=== PATIENT | female | born 1940 | race African-American/Black ===

== ENCOUNTER 2016-09-30 14:40 | Emergency (ER) | payer OTHER ==
[2016-09-30 15:10] VITALS: TEMP 98; BMI 22.6
[2016-09-30] MEDS ORDERED: SODIUM CHLORIDE 500 ML IV STA (15:39)
[2016-09-30] MEDS ORDERED: ONDANSETRON 4 MG/2 ML VIAL IVPB ONE (15:39)
--- NOTE | 2016-09-30 15:41 | PDOC ---
History of Present Illness - General History Source: Patient Exam Limitations: No Limitations - History of Present Illness Initial Comments: 09/30/16 16:12 The patient is a 76 year old female, with a significant past medical history of HTN, cataract, and diet controlled hypercholesterolemia, who presents to the emergency department with diarrhea and weakness for about an hour an ago. She notes having more than 6 episodes of diarrhea since its original onset. She reports the diarrhea as watery with normal brown stool. She denies any black or red stool. pt does endorse LLQ pain briefly prior to her BM but then resolved. She denies recent fevers, chills, headache or dizziness. She denies recent nausea, vomit, or constipation. She denies recent dysuria, frequency, urgency or hematuria. She denies recent chest pain or shortness of breath. pt notes she does have a history of diverticulitis an d is concerned that may be a recurrence. Allergies: Penicillins Past surgical history: None reported. Social history: Nonsmoker. Denies EtOH use and recreational drug use. PCP: <Faheem Huitron - Last Filed: 09/30/16 16:12> <Steven Anaya - Last Filed: 09/30/16 18:22> - General Chief Complaint: Diarrhea Stated Complaint: Diarrhea Time Seen by Provider: 09/30/16 15:02 Past History <Faheem Huitron - Last Filed: 09/30/16 16:12> - Past Medical History Diabetes: Yes (TYPE 2) GI Disorders: Yes (GERD) HTN: Yes Hypercholesterolemia: Yes - Surgical History Neurologic Surgery: Yes (LT SHOULDER) - Psycho/Social/Smoking Cessation Hx Suicidal Ideation: No Smoking History: Never smoked Have you smoked in the past 12 months: No Hx Alcohol Use: No Drug/Substance Use Hx: No Substance Use Type: None Hx Substance Use Treatment: No <Steven Anaya - Last Filed: 09/30/16 18:22> - Past Medical History Allergies/Adverse Reactions: Allergies Allergy/AdvReac Type Severity Reaction Status Date / Time Penicillins Allergy Verified 02/21/16 13:28 Home Medications: Ambulatory Orders Nifedipine ER [Procardia XL -] 50 mg PO DAILY 11/21/13 Lisinopril [Zestril] 5 mg PO DAILY 02/21/16 Review of Systems - Review of Systems Able to Perform ROS?: Yes Comments:: 09/30/16 16:12 CONSTITUTIONAL: No reported: Fever, Chills, Diaphoresis, Generalized Weakness, Malaise, Loss of Appetite HEENT: No reported: Rhinorrhea, Nasal Congestion, Throat Pain, Throat Swelling, Difficulty Swallowing, Mouth Swelling, Ear Pain, Eye Pain, Visual Changes CARDIOVASCULAR: No reported: Chest Pain, Syncope, Palpitations, Irregular Heart Rate, Lightheadedness, Peripheral Edema RESPIRATORY: No reported: Cough, Shortness of Breath, SOB with Exertion, Orthopnea, Wheezing , Stridor, Hemoptysis GASTROINTESTINAL: +Diarrhea. abd pain (non currently)No reported: Nausea, Vomiting, Constipation, Melena, Hematochezia GENITOURINARY: No reported: Dysuria, Frequency, Urgency, Hesitancy, Flank Pain, Genital Pain MUSCULOSKELETAL: No reported: Myalgia, Arthralgia, Joint Swelling, Back pain, Neck Pain SKIN: No reported: Rash, Itching, Pallor HEMATOLOGIC/IMMUNOLOGIC: No reported: Easy Bleeding, Easy Bruising, Lymphadenopathy, Frequent infections ENDOCRINE: No reported: Unexplained Weight Gain, Unexplained Weight Loss, Heat Intolerance , Cold Intolerance NEUROLOGIC: No reported: Headache, Focal Weakness, Paresthesias, Vertigo, Lightheadedness, Unsteady Gait, Seizure, Mental Status Changes, Incontinence PSYCHIATRIC: No reported: Anxiety, Depression <Faheem Huitron - Last Filed: 09/30/16 16:12> *Physical Exam - Vital Signs Last Vital Signs Temp Pulse Resp BP Pulse Ox 98 F 56 L 18 117/54 100 09/30/16 15:03 09/30/16 15:03 09/30/16 15:03 09/30/16 15:03 09/30/16 15:03 - Physical Exam Comments: 09/30/16 16:12 GENERAL: The patient is awake, alert, and fully oriented, Nontoxic - in no acute distress. HEAD: Normocephalic, atraumatic. EYES: extraocular movements intact, sclera anicteric, conjunctiva clear. ENT: Normal voice, Moist mucous membranes. NECK: Normal range of motion, supple LUNGS: Breath sounds equal, clear to auscultation bilaterally. No wheezes, no rhonchi, no rales. HEART: Regular rate and rhythm, without murmur, rub or gallop. ABDOMEN: Soft, nontender, normoactive bowel sounds. No guarding, no rebound.No CVA tenderness EXTREMITIES: Normal range of motion, no edema. No clubbing or cyanosis. No cords , erythema, or tenderness. NEUROLOGICAL: No facial asymmetry, Normal speech. PSYCH: Normal mood, normal affect. SKIN: Warm, Dry, normal turgor. <Faheem Huitron - Last Filed: 09/30/16 16:12> - Vital Signs Last Vital Signs Temp Pulse Resp BP Pulse Ox 98 F 56 L 18 117/54 100 09/30/16 15:03 09/30/16 15:03 09/30/16 15:03 09/30/16 15:03 09/30/16 15:03 <Steven Anaya - Last Filed: 09/30/16 18:22> ED Treatment Course - LABORATORY CBC & Chemistry Diagram: 09/30/16 15:40 09/30/16 15:40 - Medications Given in the ED: ED Medications Discontinued Medications Generic Name Dose Route Start Last Admin Trade Name Loyda PRN Reason Stop Dose Admin Ondansetron HCl 4 mg 09/30/16 15:39 09/30/16 15:53 Zofran Injection IVPB 09/30/16 15:40 4 mg ONCE ONE Administration <Faheem Huitron - Last Filed: 09/30/16 16:12> - LABORATORY CBC & Chemistry Diagram: 09/30/16 15:40 09/30/16 15:40 <Steven Anaya - Last Filed: 09/30/16 18:22> Medical Decision Making - Medical Decision Making 09/30/16 15:40 76y F hx of htn presents with abd pain and multiple episodes of diarrhea since this morning, pt had a brief episode of pain prior to her pain denies currnt pain. no associated fever/chills, n/v, her exam is unremarkble and she is otehrwise well appearing. suspect possible enteritis consider possible diverticulitis will ck basic labs will reassess, at this piont, do not feel pt needs imaging, but will reassess A portion of this note was documented by scribe services under my direction. I have reviewed the details of the note, within reason, and agree with the documentation with the following case summary and management plan written by me 09/30/16 18:12 The patient is feeling improved, the patient's blood work was reviewed there is no signs of a leukocytosis she is mildly anemic Will have the patient follow-up with a primary care doctor Return precautions were discussed I discussed the physical exam findings, ancillary test results and final diagnoses with the patient. I answered all of the patient's questions. The patient was satisfied with the care received and felt comfortable with the discharge plan and treatment plan. The patient will call their primary care physician within 24 hours to arrange follow-up and will return to the Emergency Department with any new, persistent or worsening symptoms. <Steven Anaya - Last Filed: 09/30/16 18:22> *DC/Admit/Observation/Transfer - Attestations Scribe Attestion: 09/30/16 16:13 Documentation prepared by Faheem Huitron, acting as medical oncologist for Steven Anaya MD. <Faheem Huitron - Last Filed: 09/30/16 16:12> - Discharge Dispostion Admit: No <Steven Anaya - Last Filed: 09/30/16 18:22> Diagnosis at time of Disposition: Diarrhea Qualifiers: Diarrhea type: unspecified type Qualified Code(s): R19.7 - Diarrhea, unspecified - Discharge Dispostion Disposition: HOME Condition at time of disposition: Improved - Referrals Referrals: Desiree Gleason MD [Primary Care Provider] - - Patient Instructions Printed Discharge Instructions: DI for Diarrhea and Traveler's Diarrhea -- Adult Additional Instructions: Return to the emergency department immediately with ANY new, persistent or worsening symptoms including worsening abdominal pain, fevers, inability to tolerate oral intake, chest pain, shortness of breath or any other concerns. Stay well hydrated. You MUST call and follow up with your doctor tomorrow. Your emergency department visit is not complete without a followup with your doctor for reevaluation. Please make sure your doctor reviews the results of your emergency evaluation. Print Language: UZBEK
[2016-09-30] MEDS ORDERED: ONDANSETRON 4 MG/2 ML VIAL ONE (15:49)
[2016-09-30 16:18] LABS: BASOPHIL 1.1 % (0-2.0); EOSINOPHIL 0.4 % (0-4.5); MCHC 29.8 g/dl (32.0-36.0); MEAN CELL VOLUME 65.3 fl (80-96); MEAN PLT VOLUME 8.9 fl (7.5-11.1); NEUTROPHILS 65.5 % (42.8-82.8); PLATELET COUNT 483 K/MM3 (134-434); RDW 27.8 % (11.6-15.6); WHITE BLOOD COUNT 8.5 K/mm3 (4.0-10.0)
[2016-09-30 16:24] LABS: MCH 19.5 pg (25.7-33.7)
[2016-09-30 16:46] LABS: ALBUMIN 3.6 g/dl (3.4-5.0); ALK PHOS 141 U/L (45-117); ANION GAP 9 (8-16); BILIRUBIN,TOTAL 0.3 mg/dL (0.2-1.0); CALCIUM 9.4 mg/dL (8.5-10.1); CO2 26 mmol/L (21-32); CREATININE 0.6 mg/dL (0.55-1.02); GLUCOSE,RANDOM 96 mg/dL (74-106); SGOT/AST 15 U/L (15-37); SGPT/ALT 22 U/L (12-78); TOT PROT 7.2 g/dl (6.4-8.2)
[2016-09-30 18:18] LABS: URINE APPEARANCE CLEAR; URINE BILIRUBIN NEGATIVE (NEGATIVE); URINE BLOOD NEGATIVE (NEGATIVE); URINE COLOR YELLOW; URINE GLUCOSE (UA) NEGATIVE (NEGATIVE); URINE KETONE NEGATIVE (NEGATIVE); URINE LEUK ESTERASE NEGATIVE (NEGATIVE); URINE NITRITE NEGATIVE (NEGATIVE); URINE PROTEIN NEGATIVE (NEGATIVE); URINE UROBILINOGEN NEGATIVE E.U./dl (0.2-1.0)
[2016-09-30 19:09] VITALS: BP 136/71; PULSE 74
[2016-09-30 19:48] LABS: ANISOCYTOSIS 3+; HYPOCHROMIA 2+; MICROCYTOSIS 1+; PLATELET ESTIMATE ADEQUATE (NORMAL); POLYCHROMASIA 1+
== END 2016-09-30 19:09 | disposition home or self-care (01) ==
LOC: JER 14:40
PROC: 3E033GC Introduction of Other Therapeutic Substance into Peripheral Vein, Percutaneous Approach (ICD-10-PCS; principal; 2016-09-30)
DX: R19.7 Diarrhea, unspecified (principal); I10 Essential (primary) hypertension; E11.9 Type 2 diabetes mellitus without complications; E78.00 Pure hypercholesterolemia, unspecified; K21.9 Gastro-esophageal reflux disease without esophagitis
CPT/HCPCS: 36415; 80053; 81003; 85025; 99282-25

== ENCOUNTER 2017-04-14 11:56 | Inpatient (IN) | payer OTHER ==
[2017-04-14] MEDS ORDERED: SODIUM CHLORIDE 1,000 ML IV STA (12:23)
[2017-04-14] MEDS ORDERED: FAMOTIDINE 20 MG/50 ML IVPB 20 MG/50 ML MG IVPB ONE (12:23)
--- NOTE | 2017-04-14 12:36 | PDOC ---
Attending Attestation - HPI HPI: 04/14/17 13:13 The patient is 76 year old female, with a significant past medical history of hypertension, DM, diverticulitis and hemorrhoids, who presents to the emergency room complaining of multiple episodes of diarrhea with bright red blood in stool. The patient reports associated weakness, chills and epigastric abdominal pain. She denies chest pain or shortness of breath. She denies recent fevers, chills, nausea or vomiting. Documentation prepared by Padilla Roberson, acting as medical technologist hematology for Jamar Diaz MD. <Padilla Roberson - Last Filed: 04/14/17 13:13> - Resident Resident Name: David Giron - ED Attending Attestation I have performed the following: I have examined & evaluated the patient, The case was reviewed & discussed with the resident, I agree w/resident's findings & plan, Exceptions are as noted - Physicial Exam PE: 04/14/17 13:37 Patient is awake and alert, afebrile and normotensive; patient had a near syncopal episode in the bathroom during the initial evaluation without LOC or head injury. Normocephalic, atraumatic; perrla, emo, conjunctiva are pale mmm rrr cta + Left-sided abdominal tenderness to palpation; No edema - Medical Decision Making 04/14/17 13:38 Patient is a 76-year-old female who presents to the ER with episodes of bright red blood per rectum after several bouts of loose watery stools. In the ER, patient is awake and alert, afebrile, hemodynamically stable. Patient was noted to have a near syncopal episode in the bathroom while defecating. EKG post near- syncope reveals no evidence of underlying ischemia or arrhythmia. Differential diagnoses includes ischemic colitis versus infectious colitis versus diverticulitis versus AVM or related rectal bleeding versus hemorrhoid related rectal bleeding. Will obtain CBC/CMP/PT/type and screen. Will obtain CT that and pelvis with by mouth and IV contrast. We'll transfuse as needed. Likely admission. 04/14/17 15:31 Patient remains hemodynamically stable. However, she has had several episodes of rectal bleeding. Will obtain CT of abdomen and pelvis with by mouth and IV contrast; Will obtain repeat CBC at 4 hours and if the hemoglobin continues to drop, will transfuse. <Jamar Diaz - Last Filed: 04/14/17 15:32>
--- NOTE | 2017-04-14 12:39 | PDOC ---
History of Present Illness - General History Source: Patient Exam Limitations: No Limitations - History of Present Illness Initial Comments: 04/14/17 12:27 Patient is a 76F with history of HTN, DM2, diverticulitis and hemorrhoids here today complaining of diarrhea and bright red blood in stool. She reports having several episodes of diarrhea this morning then passing some bright red blood painlessly during her last bowel movement. She reports associated generalized weakness with chills. She is complaining of associated epigastric abdominal pain. Denies chest pain, shortness of breath, and cough. Denies taking blood thinners. Denies nausea, vomiting, fevers and pain with urination. After examination, patient stopped responding while sitting on the toilet to her son, who called for help. She was found upright on the toilet and not responding to nurses. She was taken back to her room. She denies chest pain, shortness of breath. Patient quickly returned to baseline while in bed. Diarrhea and blood noted in toilet. <David Giron - Last Filed: 04/14/17 17:38> <Yesica Zhang - Last Filed: 04/14/17 17:59> - General Chief Complaint: Rectal Bleed Stated Complaint: BLOOD IN STOOL Time Seen by Provider: 04/14/17 12:10 Past History - Past Medical History COPD: No Diabetes: Yes (TYPE 2) GI Disorders: Yes (GERD) HTN: Yes Hypercholesterolemia: Yes - Surgical History Neurologic Surgery: Yes (LT SHOULDER) - Suicide/Smoking/Psychosocial Hx Smoking History: Unknown if ever smoked Have you smoked in the past 12 months: No Information on smoking cessation initiated: No Hx Alcohol Use: No Drug/Substance Use Hx: No Substance Use Type: None Hx Substance Use Treatment: No <David Giron - Last Filed: 04/14/17 17:38> <Yesica Zhang - Last Filed: 04/14/17 17:59> - Past Medical History Allergies/Adverse Reactions: Allergies Allergy/AdvReac Type Severity Reaction Status Date / Time Penicillins Allergy Verified 04/14/17 12:24 Home Medications: Ambulatory Orders Aspirin [ASA -] 81 mg PO DAILY 04/14/17 Lisinopril 5 mg PO DAILY 04/14/17 Nifedipine [Nifedipine ER] 60 mg PO DAILY 04/14/17 Review of Systems - Review of Systems Comments:: 04/14/17 12:52 GENERAL/CONSTITUTIONAL: No fever. Positive for chills and weakness. HEAD, EYES, EARS, NOSE AND THROAT: No change in vision. No sore throat. CARDIOVASCULAR: No chest pain or shortness of breath RESPIRATORY: No cough, wheezing, or hemoptysis. GASTROINTESTINAL: No nausea, vomiting. Positive for diarrhea. GENITOURINARY: No dysuria, frequency, or change in urination. MUSCULOSKELETAL: No joint or muscle swelling or pain. No neck or back pain. SKIN: No rash NEUROLOGIC: No headache, vertigo, loss of consciousness, or change in strength/ sensation. HEMATOLOGIC/LYMPHATIC: No anemia, easy bleeding, or history of blood clots. ALLERGIC/IMMUNOLOGIC: No hives or skin allergy. <David Giron - Last Filed: 04/14/17 17:38> *Physical Exam - Vital Signs Last Vital Signs Temp Pulse Resp BP Pulse Ox 97.9 F 80 19 113/60 100 04/14/17 12:21 04/14/17 12:21 04/14/17 12:21 04/14/17 12:21 04/14/17 12:21 - Physical Exam Comments: 04/14/17 12:54 GENERAL: Awake, alert, and fully oriented, in no acute distress HEAD: No signs of trauma, normocephalic, atraumatic EYES: PERRLA, EOMI, sclera anicteric, conjunctiva clear ENT: Auricles normal inspection, hearing grossly normal, nares patent, oropharynx clear without exudates. Moist mucosa LUNGS: No distress, speaks full sentences, clear to auscultation bilaterally HEART: Regular rate and rhythm, normal S1 and S2, no murmurs, rubs or gallops, peripheral pulses normal and equal bilaterally. ABDOMEN: Soft, minimally tender in epigastrium, normoactive bowel sounds. No guarding, no rebound. No masses EXTREMITIES: Normal inspection, Normal range of motion, no edema. No clubbing or cyanosis. NEUROLOGICAL: Cranial nerves II through XII grossly intact. Normal speech, no focal sensorimotor deficits SKIN: Warm, Dry, normal turgor, no rashes or lesions noted. RECTAL: 1cm external hemorrhoid noted, no masses or tommie blood noted <David Giron - Last Filed: 04/14/17 17:38> - Vital Signs Last Vital Signs Temp Pulse Resp BP Pulse Ox 98.9 F 79 19 119/70 98 04/14/17 17:22 04/14/17 17:22 04/14/17 17:22 04/14/17 17:22 04/14/17 17:22 <Yesica Zhang - Last Filed: 04/14/17 17:59> ED Treatment Course - LABORATORY CBC & Chemistry Diagram: 04/14/17 16:30 04/14/17 12:29 <David Giron - Last Filed: 04/14/17 17:38> - LABORATORY CBC & Chemistry Diagram: 04/14/17 16:30 04/14/17 12:29 - ADDITIONAL ORDERS Additional order review: Laboratory Results 04/14/17 04/14/17 04/14/17 12:29 12:29 12:29 PT with INR 11.30 INR 1.00 Sodium Potassium Chloride Carbon Dioxide Anion Gap BUN Creatinine Creat Clearance w eGFR Random Glucose Calcium Total Bilirubin AST ALT Alkaline Phosphatase Creatine Kinase 50 Troponin I < 0.02 Total Protein Albumin Lipase Stool Occult Blood Blood Type A POSITIVE Antibody Screen Negative Crossmatch See Detail 04/14/17 04/14/17 12:29 12:29 PT with INR INR Sodium 143 Potassium 3.7 Chloride 108 H Carbon Dioxide 25 Anion Gap 10 BUN 27 H D Creatinine 0.6 Creat Clearance w eGFR > 60 Random Glucose 111 H Calcium 8.6 Total Bilirubin < 0.1 L D AST 17 ALT 22 Alkaline Phosphatase 122 H Creatine Kinase Troponin I Total Protein 6.2 L Albumin 3.0 L Lipase 242 Stool Occult Blood Positive Blood Type Antibody Screen Crossmatch 04/14/17 04/14/17 16:30 12:29 RBC 2.28 L D 3.50 L MCV 70.9 L 71.2 L MCHC 30.2 L 29.5 L RDW 28.7 H 29.4 H MPV 8.4 8.8 Neutrophils % 76.0 66.0 Lymphocytes % 19.5 D 27.3 Monocytes % 4.3 6.0 Eosinophils % 0.0 D 0.2 Basophils % 0.2 0.5 - Medications Given in the ED: ED Medications Discontinued Medications Generic Name Dose Route Start Last Admin Trade Name Freq PRN Reason Stop Dose Admin Famotidine/Sodium Chloride 20 mg in 50 mls @ 100 mls/hr 04/14/17 12:23 13:25 Pepcid 20 Mg Premixed Ivpb - IVPB 04/14/17 12:52 100 mls/hr ONCE ONE Administration Sodium Chloride 1,000 mls @ 1,000 mls/hr 04/14/17 12:23 04/14/17 15:08 Normal Saline - IV 04/14/17 13:22 1,000 mls/hr ASDIR STA Administration Sodium Chloride 500 mls @ 500 mls/hr 04/14/17 12:52 04/14/17 13:00 Normal Saline - IV 04/14/17 13:51 500 mls/hr ASDIR STA Administration Pantoprazole Sodium 40 mg 04/14/17 17:30 04/14/17 17:41 Protonix Iv IVPUSH 04/14/17 17:31 40 mg ONCE ONE Administration <Yesica Zhang - Last Filed: 04/14/17 17:59> Medical Decision Making - Medical Decision Making 04/14/17 12:57 Patient is 76F with history of diverticulitis, hemorrhoids, DM, HTN here today with diarrhea, blood in stool and syncope. Vital signs stable and normal. Exam benign. Will workup with cbc, cmp, lipase, trop, pt/inr, type and screen, chest x-ray, ekg. Will treat with 500ml fluids and pepcid for epigastric pain. 04/14/17 13:54 Laboratory Tests 04/14/17 04/14/17 04/14/17 12:29 12:29 12:29 WBC 17.3 H D Hgb 7.4 L D Hct 24.9 L MCV 71.2 L Plt Count 386 D BUN 27 H D Creatinine 0.6 Creat Clearance w eGFR > 60 Stool Occult Blood Positive CBC notable for leukocytosis, and hgb of 7.4. Was in 8s this summer and 12 two years prior. Suspect chronic loss due to MCV of 71. Patient continues to be asymptomatic, denies chest pain, shortness of breath. Vital signs remain normal. No need to transfuse at this time. Kidney function normal. Stool occult blood positive. Will do CT with IV/PO contrast to evaluate for diverticulitis and other abdominal pathologies. 04/14/17 14:02 INR normal 04/14/17 15:17 CXR shows no acute pathology or change since 02/25. 04/14/17 17:36 Laboratory Tests 04/14/17 04/14/17 12:29 16:30 Hgb 4.9 L* D INR 1.00 CT scan shows colitis with probable diverticula. Repeat CBC shows drop of 2.[address] Vasquez (GI) paged. Recommends transfusing 4 units, 1 unit of platelets (due to aspirin use), protonix, golytely, and npo. He plans to scope in the morning. Dr Sherwood accepted ICU admission. <David Giron - Last Filed: 04/14/17 17:38> *DC/Admit/Observation/Transfer <David Giron - Last Filed: 04/14/17 17:38> - Discharge Dispostion Admit: Yes <Yesica Zhang - Last Filed: 04/14/17 17:59> Diagnosis at time of Disposition: Symptomatic anemia, Rectal bleed - Discharge Dispostion Condition at time of disposition: Critical
[2017-04-14 12:52] LABS: BASO % 0.5 % (0-2.0); EOS % 0.2 % (0-4.5); HEMATOCRIT 24.9 % (32.4-45.2); HEMOGLOBIN 7.4 GM/dL (10.7-15.3); LYMPH % 27.3 % (8-40); MCHC 29.5 g/dl (32.0-36.0); MEAN CELL VOLUME 71.2 fl (80-96); MEAN PLT VOLUME 8.8 fl (7.5-11.1); PLATELET COUNT 386 K/MM3 (134-434); RDW 29.4 % (11.6-15.6); WHITE BLOOD COUNT 17.3 K/mm3 (4.0-10.0)
[2017-04-14] MEDS ORDERED: SODIUM CHLORIDE 500 ML IV STA (12:52)
[2017-04-14 13:04] LABS: ADD RBC MORPHOLOGY YES
[2017-04-14 13:21] LABS: PROTHROMBIN TIME (PATIENT) 11.3 SEC (9.98-11.88)
[2017-04-14 13:38] LABS: ALK PHOS 122 U/L (45-117); ANION GAP 10 (8-16); BLOOD UREA NITROGEN 27 mg/dL (7-18); CALCIUM 8.6 mg/dL (8.5-10.1); CHLORIDE 108 mmol/L (98-107); CO2 25 mmol/L (21-32); CREATININE 0.6 mg/dL (0.55-1.02); GLUCOSE,RANDOM 111 mg/dL (74-106); SGPT/ALT 22 U/L (12-78); SODIUM 143 mmol/L (136-145); TOT PROT 6.2 g/dl (6.4-8.2)
[2017-04-14 13:42] LABS: BILIRUBIN,TOTAL < 0.1 mg/dL (0.2-1.0); LIPASE 242 U/L (73-393); POTASSIUM 3.7 mmol/L (3.5-5.1); SGOT/AST 17 U/L (15-37)
[2017-04-14 14:29] LABS: ANISOCYTOSIS 3+; PLATELET ESTIMATE NORMAL; TARGET CELLS 1+
[2017-04-14 16:34] LABS: BASO % 0.2 % (0-2.0); HEMATOCRIT 16.2 % (32.4-45.2); LYMPH % 19.5 % (8-40); MCH 21.4 pg (25.7-33.7); MCHC 30.2 g/dl (32.0-36.0); MEAN CELL VOLUME 70.9 fl (80-96); MEAN PLT VOLUME 8.4 fl (7.5-11.1); MONO % 4.3 % (3.8-10.2); PLATELET COUNT 250 K/MM3 (134-434); RBC 2.28 M/mm3 (3.60-5.2); RDW 28.7 % (11.6-15.6); WHITE BLOOD COUNT 12.9 K/mm3 (4.0-10.0)
--- NOTE | 2017-04-14 16:52 | EKG ---
Test Reason : Blood Pressure : / mmHG Vent. Rate : 067 BPM Atrial Rate : 067 BPM P-R Int : 116 ms QRS Dur : 080 ms QT Int : 374 ms P-R-T Axes : 006 050 067 degrees QTc Int : 395 ms NORMAL SINUS RHYTHM NONSPECIFIC T WAVE ABNORMALITY ABNORMAL ECG WHEN COMPARED WITH ECG OF 21-FEB-2016 14:49, NONSPECIFIC T WAVE ABNORMALITY NOW EVIDENT IN INFERIOR LEADS NONSPECIFIC T WAVE ABNORMALITY NOW EVIDENT IN LATERAL LEADS Confirmed by BEVERLY RODRIGUEZ MD ([id number]) on 04/14/2017 4:51:48 PM Referred By: Confirmed By:BEVERLY RODRIGUEZ MD
[2017-04-14 17:04] LABS: ADD RBC MORPHOLOGY YES; HEMOGLOBIN 4.9 GM/dL (10.7-15.3)
[2017-04-14] MEDS ORDERED: PANTOPRAZOLE SODIUM 40 MG VIAL IVPUSH ONE (17:30)
[2017-04-14] MEDS ORDERED: PEG 3350/NA SULF BICARB CL/KCL 4000 ML SOLN.RECON PO ONE (17:30)
[2017-04-14] MEDS ORDERED: PANTOPRAZOLE SODIUM 40 MG VIAL ONE (17:36)
[2017-04-14] MEDS ORDERED: DIPHTH,PERTUSS(ACELL),TET 0.5 ML DISP.SYRIN IM ONE (17:48)
--- NOTE | 2017-04-14 17:50 | PN ---
Progress Note (short form) - Note Progress Note: Discussed with ED team. Full consult to follow. Lower GI bleeding. CT scan results noted. On ASA Transfuse to Hg 8 8/dl Rapid colon prep PPI IV IVF (monitor for fluid overload while receiving blood) Colonoscopy when Hgb at 8g/dl ICU
--- NOTE | 2017-04-14 18:17 | HP ---
CHIEF COMPLAINT: Rectal bleeding , HISTORY OF PRESENT ILLNESS: 76 year-old female with a PMH significant for HTN, NIDDM, diverticulosis, and hemorrhoids, presented to the ED complaining of diarrhea and bright red blood in stool. She reported several episodes of diarrhea this morning, and then passing bright red blood painlessly during her last bowel movement. She reported associated generalized weakness with chills and epigastric abdominal pain. Denies chest pain, shortness of breath, and cough. Denies taking blood thinners. Denies nausea, vomiting, fevers and pain with urination. Patient's last colonoscopy was a year ago with Dr. Dietrich and she was told she has diverticulosis. ER course was notable for: (1) Hgb 7.4-->4.9 (2) (3) Recent Travel: No PAST MEDICAL HISTORY: Hypertension NIDDM Diverticulosis Hemorrohoids PAST SURGICAL HISTORY: Social History: Smoking: no Alcohol: no Drugs: no Family History: Allergies Penicillins Allergy (Verified 04/14/17 12:24) HOME MEDICATIONS: Home Medications Medication Instructions Recorded Aspirin [ASA -] 81 mg PO DAILY 04/14/17 Lisinopril 5 mg PO DAILY 04/14/17 Nifedipine [Nifedipine ER] 60 mg PO DAILY 04/14/17 REVIEW OF SYSTEMS CONSTITUTIONAL: +generalized weakness Absent: fever, chills, diaphoresis, malaise, loss of appetite, weight change HEENT: Absent: rhinorrhea, nasal congestion, throat pain, throat swelling, difficulty swallowing, mouth swelling, ear pain, eye pain, visual changes CARDIOVASCULAR: Absent: chest pain, syncope, palpitations, irregular heart rate, lightheadedness , peripheral edema RESPIRATORY: Absent: cough, shortness of breath, dyspnea with exertion, orthopnea, wheezing, stridor, hemoptysis GASTROINTESTINAL: +diarrhea, bleeding per rectum Absent: abdominal pain, abdominal distension, nausea, vomiting, diarrhea, constipation, melena, hematochezia GENITOURINARY: Absent: dysuria, frequency, urgency, hesitancy, hematuria, flank pain, genital pain MUSCULOSKELETAL: Absent: myalgia, arthralgia, joint swelling, back pain, neck pain SKIN: Absent: rash, itching, pallor HEMATOLOGIC/IMMUNOLOGIC: Absent: easy bleeding, easy bruising, lymphadenopathy, frequent infections ENDOCRINE: Absent: unexplained weight gain, unexplained weight loss, heat intolerance, cold intolerance NEUROLOGIC: Absent: headache, focal weakness or paresthesias, dizziness, unsteady gait, seizure, mental status changes, bladder or bowel incontinence PSYCHIATRIC: Absent: anxiety, depression, suicidal or homicidal ideation, hallucinations. PHYSICAL EXAMINATION Vital Signs - 24 hr 04/14/17 04/14/17 04/14/17 12:21 12:24 12:51 Temperature 97.9 F Pulse Rate 80 Pulse Rate [ 79 Apical] Respiratory 19 18 Rate Blood Pressure 113/60 Blood Pressure 114/60 [Right Arm] O2 Sat by Pulse 100 100 99 Oximetry (%) 04/14/17 04/14/17 04/14/17 13:34 17:22 18:10 Temperature 98.9 F 98.3 F Pulse Rate Pulse Rate [ 74 79 79 Apical] Respiratory 17 19 18 Rate Blood Pressure Blood Pressure 124/65 119/70 119/57 [Right Arm] O2 Sat by Pulse 98 98 99 Oximetry (%) GENERAL: Awake, alert, and fully oriented, in no acute distress. Weak appearing. HEAD: Normal with no signs of trauma. EYES: Pupils equal, round and reactive to light, extraocular movements intact, sclera anicteric, conjunctiva clear. No lid lag. EARS, NOSE, THROAT: Ears normal, nares patent, oropharynx clear without exudates. Moist mucous membranes. NECK: Normal range of motion, supple without lymphadenopathy, JVD, or masses. LUNGS: Breath sounds equal, clear to auscultation bilaterally. No wheezes, and no crackles. No accessory muscle use. HEART: Regular rate and rhythm, normal S1 and S2 without murmur, rub or gallop. ABDOMEN: Soft, nontender, not distended, normoactive bowel sounds, no guarding, no rebound, no masses. No hepatomegaly or splenomegaly. MUSCULOSKELETAL: Normal range of motion at all joints. No bony deformities or tenderness. No CVA tenderness. UPPER EXTREMITIES: 2+ pulses, warm, well-perfused. No cyanosis. No clubbing. No peripheral edema. LOWER EXTREMITIES: 2+ pulses, warm, well-perfused. No calf tenderness. No peripheral edema. NEUROLOGICAL: Cranial nerves II-XII intact. Normal speech. Normal gait. PSYCHIATRIC: Cooperative. Good eye contact. Appropriate mood and affect. SKIN: Warm, dry, normal turgor, Laboratory Results - last 24 hr 04/14/17 04/14/17 04/14/17 12:29 12:29 12:29 WBC 17.3 H D RBC 3.50 L Hgb 7.4 L D Hct 24.9 L MCV 71.2 L MCH 21.0 L MCHC 29.5 L RDW 29.4 H Plt Count 386 D MPV 8.8 Neutrophils % 66.0 Lymphocytes % 27.3 Monocytes % 6.0 Eosinophils % 0.2 Basophils % 0.5 Hypochromia 2+ Platelet Estimate Normal Anisocytosis 3+ Microcytosis 3+ Target Cells 1+ Fragmented RBCs 1+ PT with INR INR Sodium 143 Potassium 3.7 Chloride 108 H Carbon Dioxide 25 Anion Gap 10 BUN 27 H D Creatinine 0.6 Creat Clearance w eGFR > 60 Random Glucose 111 H Calcium 8.6 Total Bilirubin < 0.1 L D AST 17 ALT 22 Alkaline Phosphatase 122 H Creatine Kinase Troponin I Total Protein 6.2 L Albumin 3.0 L Lipase 242 Stool Occult Blood Positive Blood Type Antibody Screen Crossmatch 04/14/17 04/14/17 04/14/17 12:29 12:29 12:29 WBC RBC Hgb Hct MCV MCH MCHC RDW Plt Count MPV Neutrophils % Lymphocytes % Monocytes % Eosinophils % Basophils % Hypochromia Platelet Estimate Anisocytosis Microcytosis Target Cells Fragmented RBCs PT with INR 11.30 INR 1.00 Sodium Potassium Chloride Carbon Dioxide Anion Gap BUN Creatinine Creat Clearance w eGFR Random Glucose Calcium Total Bilirubin AST ALT Alkaline Phosphatase Creatine Kinase 50 Troponin I < 0.02 Total Protein Albumin Lipase Stool Occult Blood Blood Type A POSITIVE Antibody Screen Negative Crossmatch See Detail 04/14/17 16:30 WBC 12.9 H RBC 2.28 L D Hgb 4.9 L* D Hct 16.2 L D MCV 70.9 L MCH 21.4 L MCHC 30.2 L RDW 28.7 H Plt Count 250 D MPV 8.4 Neutrophils % 76.0 Lymphocytes % 19.5 D Monocytes % 4.3 Eosinophils % 0.0 D Basophils % 0.2 Hypochromia Platelet Estimate Anisocytosis Microcytosis Target Cells Fragmented RBCs PT with INR INR Sodium Potassium Chloride Carbon Dioxide Anion Gap BUN Creatinine Creat Clearance w eGFR Random Glucose Calcium Total Bilirubin AST ALT Alkaline Phosphatase Creatine Kinase Troponin I Total Protein Albumin Lipase Stool Occult Blood Blood Type Antibody Screen Crossmatch ASSESSMENT/PLAN 76 year-old female with a PMH significant for HTN, NIDDM, diverticulosis, and hemorrhoids, admitted for lower GI bleed and acute blood loss anemia. Lower GI bleed Acute severe blood loss anemia --acute onset earlier today --Hgb 7.4-->4,.9 --transfuse 1U platelets, 4U PRBC --Lasix IV 40mg x 1 between second and third units --colonoscopy in morning with Dr. Vasquez Hypertension --presently normotensive --home home nifedipine, lisinopril NIDDM --Novolog sliding scale coverage DVT propjylaxis: no chemical prophylaxis; SCDs Dispo: requires ICU level care. Full code. Visit type - Emergency Visit Emergency Visit: Yes ED Registration Date: 04/14/17 Care time: The patient presented to the Emergency Department on the above date and was hospitalized for further evaluation of their emergent condition. - New Patient This patient is new to me today: Yes Date on this admission: 04/15/17 - Critical Care Critical Care patient: Yes Total Critical Care Time (in minutes): 40 Critical Care Statement: The care of this patient involved high complexity decision making to prevent further life threatening deterioration of the patient 's condition and/or to evaluate & treat vital organ system(s) failure or risk of failure.
[2017-04-14 18:34] LABS: ANISOCYTOSIS 3+; OVALOCYTE 1+
[2017-04-14 19:43] LABS: URINE APPEARANCE CLEAR; URINE BILIRUBIN NEGATIVE (NEGATIVE); URINE BLOOD NEGATIVE (NEGATIVE); URINE COLOR COLORLESS; URINE GLUCOSE (UA) NEGATIVE (NEGATIVE); URINE KETONE NEGATIVE (NEGATIVE); URINE LEUK ESTERASE NEGATIVE (NEGATIVE); URINE NITRITE NEGATIVE (NEGATIVE); URINE PROTEIN NEGATIVE (NEGATIVE); URINE UROBILINOGEN NEGATIVE mg/dL (0.2-1.0)
[2017-04-14] MEDS ORDERED: FUROSEMIDE 40 MG/4 ML INJECTABLE VIAL IVPUSH ONE (20:00)
[2017-04-14] MEDS ORDERED: CHLORHEXIDINE GLUCONATE 4% CLEANSER FOR DECOLONIZATION TP SCH (22:00)
--- NOTE | 2017-04-14 22:52 | CONSULT ---
Consult Consult Specialty:: Pulm/ Critical Care - Alcohol/Substance Use Hx Alcohol Use: No - Smoking History Smoking history: Unknown if ever smoked Have you smoked in the past 12 months: No Home Medications - Allergies Allergies/Adverse Reactions: Allergies Allergy/AdvReac Type Severity Reaction Status Date / Time Penicillins Allergy Verified 04/14/17 12:24 - Home Medications Home Medications: Ambulatory Orders Aspirin [ASA -] 81 mg PO DAILY 04/14/17 Lisinopril 5 mg PO DAILY 04/14/17 Nifedipine [Nifedipine ER] 60 mg PO DAILY 04/14/17 Physical Exam Vital Signs: Vital Signs Temperature 98.3 F 04/14/17 18:10 Pulse Rate 78 04/14/17 18:10 Respiratory Rate 18 04/14/17 18:10 Blood Pressure 119/57 04/14/17 18:10 O2 Sat by Pulse Oximetry (%) 98 04/14/17 18:10 Labs: CBC, BMP 04/14/17 16:30 04/14/17 12:29
[2017-04-15] MEDS ORDERED: FUROSEMIDE 40 MG/4 ML INJECTABLE VIAL ONE (00:57)
[2017-04-15 06:21] LABS: BASO % 0.4 % (0-2.0); EOS % 0.1 % (0-4.5); HEMATOCRIT 29.7 % (32.4-45.2); MCH 26.2 pg (25.7-33.7); MCHC 33.7 g/dl (32.0-36.0); MEAN CELL VOLUME 77.7 fl (80-96); MEAN PLT VOLUME 9.2 fl (7.5-11.1); NEUT % 71.5 % (42.8-82.8); PLATELET COUNT 285 K/MM3 (134-434); RBC 3.83 M/mm3 (3.60-5.2); RDW 21.4 % (11.6-15.6); WHITE BLOOD COUNT 14.8 K/mm3 (4.0-10.0)
[2017-04-15 06:36] VITALS: BMI 23.4
[2017-04-15 06:46] LABS: ALBUMIN 2.8 g/dl (3.4-5.0); ANION GAP 10 (8-16); BLOOD UREA NITROGEN 12 mg/dL (7-18); CALCIUM 8.4 mg/dL (8.5-10.1); CHLORIDE 108 mmol/L (98-107); CO2 26 mmol/L (21-32); CREATININE 0.6 mg/dL (0.55-1.02); GLUCOSE,RANDOM 83 mg/dL (74-106); MAGNESIUM 1.8 mg/dL (1.8-2.4); PHOSPHOROUS 3.1 mg/dL (2.5-4.9); POTASSIUM 3.4 mmol/L (3.5-5.1); SGOT/AST 17 U/L (15-37); SGPT/ALT 24 U/L (12-78); SODIUM 144 mmol/L (136-145)
[2017-04-15 06:48] LABS: ALK PHOS 93 U/L (45-117); BILIRUBIN,TOTAL 1.5 mg/dL (0.2-1.0); TOT PROT 5.4 g/dl (6.4-8.2)
[2017-04-15] MEDS ORDERED: PROPOFOL 20 ML ONE (09:01)
[2017-04-15] MEDS ORDERED: ETOMIDATE 20 MG/10 ML AMPUL IVPUSH ONE (09:01)
[2017-04-15] MEDS ORDERED: LIDOCAINE HCL/PF 2% SDV 5ML VIAL ONE (09:01)
[2017-04-15 09:18] LABS: PLATELET ESTIMATE NORMAL
--- NOTE | 2017-04-15 09:45 | PROC ---
Endoscopy Procedure Endoscopy procedure completed. Please see scanned procedure report. mild, sigmoid, non-bleeding diverticulosis, and small internal hemorrhoids. Otherwise normal colonoscopy.
--- NOTE | 2017-04-15 09:51 | CON.GI ---
Consult Consult Specialty:: GI - History of Present Illness History of Present Illness: A 76 yof admitted via ED for lower GI bleeding x 1 day. Hg on admission 7 g/dl, 4 g/dl repeated. One witnessed episode of hematochezia while in ED. Admited to ICU for monitoring. S/p 4 UPRBC, 1 U PLT (ASA). Awake, alert. Not in distress. Colonoscopy 1 y ago was "normal". CT a/p in ED showed sigmoid diverticulosis, thickened sigmoid colon. - History Source History Provided By: Patient, Medical Record - Alcohol/Substance Use Hx Alcohol Use: No - Smoking History Smoking history: Unknown if ever smoked Have you smoked in the past 12 months: No Home Medications - Allergies Allergies/Adverse Reactions: Allergies Allergy/AdvReac Type Severity Reaction Status Date / Time Penicillins Allergy Verified 04/14/17 12:24 - Home Medications Home Medications: Ambulatory Orders Aspirin [ASA -] 81 mg PO DAILY 04/14/17 Lisinopril 5 mg PO DAILY 04/14/17 Nifedipine [Nifedipine ER] 60 mg PO DAILY 04/14/17 Family Disease History - Family Disease History Family History: Unremarkable Review of Systems Findings/Remarks: as per H&P Physical Exam-GI Vital Signs: Vital Signs Temperature 98 F 04/15/17 06:00 Pulse Rate 80 04/15/17 08:00 Respiratory Rate 20 04/15/17 08:00 Blood Pressure 141/69 04/15/17 08:00 O2 Sat by Pulse Oximetry (%) 99 04/15/17 06:00 Constitutional: Yes: Well Nourished, No Distress, Calm Eyes: Yes: Conjunctiva Clear HENT: Yes: Atraumatic Neck: Yes: Supple Cardiovascular: Yes: Regular Rate and Rhythm Respiratory: Yes: Regular Gastrointestinal Inspection: No: Ascites, Distention ...Auscultate: Yes: Normoactive Bowel Sounds ...Palpate: Yes: Soft. No: Firm/Rigid, Guarding, Mass, Tenderness, Tenderness, Epigastium, Tenderness, Rebound ...Percussion: No: Fluid Wave Neurological: Yes: Alert, Oriented Labs: CBC, BMP 04/15/17 06:00 04/15/17 06:00 INR, PTT INR 1.00 (0.82-1.09) 04/14/17 12:29 Laboratory Tests 04/14/17 04/14/17 04/14/17 12:29 12:29 12:29 WBC 17.3 H D RBC 3.50 L Hgb 7.4 L D Hct 24.9 L MCV 71.2 L MCH 21.0 L MCHC 29.5 L RDW 29.4 H Plt Count 386 D MPV 8.8 Neutrophils % 66.0 Lymphocytes % 27.3 Monocytes % 6.0 Eosinophils % 0.2 Basophils % 0.5 Hypochromia 2+ Platelet Estimate Normal Anisocytosis 3+ Microcytosis 3+ Target Cells 1+ Ovalocytes Fragmented RBCs 1+ PT with INR INR Sodium 143 Potassium 3.7 Chloride 108 H Carbon Dioxide 25 Anion Gap 10 BUN 27 H D Creatinine 0.6 Creat Clearance w eGFR > 60 Random Glucose 111 H Lactic Acid Calcium 8.6 Phosphorus Magnesium Total Bilirubin < 0.1 L D AST 17 ALT 22 Alkaline Phosphatase 122 H Creatine Kinase Troponin I Total Protein 6.2 L Albumin 3.0 L Lipase 242 Urine Color Urine Appearance Urine pH Ur Specific [place] Urine Protein Urine Glucose (UA) Urine Ketones Urine Blood Urine Nitrite Urine Bilirubin Urine Urobilinogen Ur Leukocyte Esterase Stool Occult Blood Positive Blood Type Antibody Screen Crossmatch 04/14/17 04/14/17 04/14/17 12:29 12:29 12:29 WBC RBC Hgb Hct MCV MCH MCHC RDW Plt Count MPV Neutrophils % Lymphocytes % Monocytes % Eosinophils % Basophils % Hypochromia Platelet Estimate Anisocytosis Microcytosis Target Cells Ovalocytes Fragmented RBCs PT with INR 11.30 INR 1.00 Sodium Potassium Chloride Carbon Dioxide Anion Gap BUN Creatinine Creat Clearance w eGFR Random Glucose Lactic Acid Calcium Phosphorus Magnesium Total Bilirubin AST ALT Alkaline Phosphatase Creatine Kinase 50 Troponin I < 0.02 Total Protein Albumin Lipase Urine Color Urine Appearance Urine pH Ur Specific [place] Urine Protein Urine Glucose (UA) Urine Ketones Urine Blood Urine Nitrite Urine Bilirubin Urine Urobilinogen Ur Leukocyte Esterase Stool Occult Blood Blood Type A POSITIVE Antibody Screen Negative Crossmatch See Detail 04/14/17 04/14/17 04/14/17 16:30 19:30 19:50 WBC 12.9 H RBC 2.28 L D Hgb 4.9 L* D Hct 16.2 L D MCV 70.9 L MCH 21.4 L MCHC 30.2 L RDW 28.7 H Plt Count 250 D MPV 8.4 Neutrophils % 76.0 Lymphocytes % 19.5 D Monocytes % 4.3 Eosinophils % 0.0 D Basophils % 0.2 Hypochromia 2+ Platelet Estimate Anisocytosis 3+ Microcytosis 3+ Target Cells Ovalocytes 1+ Fragmented RBCs PT with INR INR Sodium Potassium Chloride Carbon Dioxide Anion Gap BUN Creatinine Creat Clearance w eGFR Random Glucose Lactic Acid Calcium Phosphorus Magnesium Total Bilirubin AST ALT Alkaline Phosphatase Creatine Kinase Troponin I Total Protein Albumin Lipase Urine Color Colorless Urine Appearance Clear Urine pH 6.0 Ur Specific [place] 1.032 Urine Protein Negative Urine Glucose (UA) Negative Urine Ketones Negative Urine Blood Negative Urine Nitrite Negative Urine Bilirubin Negative Urine Urobilinogen Negative Ur Leukocyte Esterase Negative Stool Occult Blood Blood Type A POSITIVE Antibody Screen Crossmatch 04/15/17 04/15/17 04/15/17 06:00 06:00 06:00 WBC 14.8 H RBC 3.83 D Hgb 10.0 L D Hct 29.7 L D MCV 77.7 L D MCH 26.2 D MCHC 33.7 RDW 21.4 H D Plt Count 285 MPV 9.2 Neutrophils % 71.5 Lymphocytes % 21.0 Monocytes % 7.0 Eosinophils % 0.1 D Basophils % 0.4 Hypochromia Platelet Estimate Anisocytosis Microcytosis Target Cells Ovalocytes Fragmented RBCs PT with INR INR Sodium 144 Potassium 3.4 L Chloride 108 H Carbon Dioxide 26 Anion Gap 10 BUN 12 D Creatinine 0.6 Creat Clearance w eGFR > 60 Random Glucose 83 D Lactic Acid 1.3 Calcium 8.4 L Phosphorus 3.1 Magnesium 1.8 Total Bilirubin 1.5 H D AST 17 ALT 24 Alkaline Phosphatase 93 D Creatine Kinase Troponin I Total Protein 5.4 L Albumin 2.8 L Lipase Urine Color Urine Appearance Urine pH Ur Specific [place] Urine Protein Urine Glucose (UA) Urine Ketones Urine Blood Urine Nitrite Urine Bilirubin Urine Urobilinogen Ur Leukocyte Esterase Stool Occult Blood Blood Type Antibody Screen Crossmatch Imaging - Results Cat Scan: Report Reviewed Problem List - Problems (1) Diverticular hemorrhage Code(s): K57.31 - DVRTCLOS OF LG INT W/O PERFORATION OR ABSCESS W BLEEDING (2) Rectal bleed Code(s): K62.5 - HEMORRHAGE OF ANUS AND RECTUM Assessment/Plan Rapid colon prep Transfuse to hgb 8 g/dl PLT Colonoscopy for control of bleeding discussed with ED team
[2017-04-15] MEDS ORDERED: POTASSIUM CHLORIDE TABS 20 MEQ TABLET.ER (FP) PO ONE (10:30)
--- NOTE | 2017-04-15 11:39 | CONSULT ---
Consult Consult Specialty:: Critical Care - History of Present Illness History of Present Illness: 76 y/o with PMH of HTN, DM2, diverticulitis and hemorrhoids who presented to the ED with complaints of diarrhea and bright red blood in stool. Reported having several episodes of diarrhea on the morning of admission and then passing some bright red blood per rectum during a bowel movement without pain. She admitted to associated generalized weakness with chills and epigastric abdominal pain. Denied chest pain, shortness of breath, and cough. Takes aspirin 81 daily but no other blood thinners She had an episode of unresponsiveness while sitting on the toilet after a bowel movement according to her son, who called for help, she was found upright on the toilet and not responding according to nurses. She was taken back to her room and remained asymptomatic without chest pain, shortness of breath. Patient quickly returned to baseline while in bed. Diarrhea and blood noted in toilet. Received 4 units PRBCs and 1 unit of platelets in the ED for a HgB that dropped from 7.6 to 4.7 with good response to HgB 10. She underwent colonoscopy this AM without event and only demonstrating non- bleeding diverticuli with some clots overtop. Overall appears stable and not requiring ICU level of care currently. - History Source History Provided By: Patient, Medical Record Limitations to Obtaining History: No Limitations - Alcohol/Substance Use Hx Alcohol Use: No - Smoking History Smoking history: Unknown if ever smoked Have you smoked in the past 12 months: No Home Medications - Allergies Allergies/Adverse Reactions: Allergies Allergy/AdvReac Type Severity Reaction Status Date / Time Penicillins Allergy Verified 04/14/17 12:24 - Home Medications Home Medications: Ambulatory Orders Aspirin [ASA -] 81 mg PO DAILY 04/14/17 Lisinopril 5 mg PO DAILY 04/14/17 Nifedipine [Nifedipine ER] 60 mg PO DAILY 04/14/17 Review of Systems - Review of Systems Constitutional: denies: Fever, Loss of Appetite Eyes: denies: Blurred Vision HENT: denies: Difficult Swallowing, Epistaxis, Gingival Bleeding Cardiovascular: denies: Edema, Palpitations, Shortness of Breath Respiratory: denies: Orthopnea, PND, SOB Gastrointestinal: reports: Rectal Bleeding. denies: Dysphagia, Melena, Nausea, Vomiting, Vomiting Blood Genitourinary: denies: Burning, Discharge, Dysuria Musculoskeletal: denies: Back Pain Integumentary: denies: Bruising, Change in Color, Erythema Neurological: reports: Dizziness. denies: Headache, Numbness Physical Exam Vital Signs: Vital Signs Temperature 98.4 F 04/15/17 10:00 Pulse Rate 74 04/15/17 10:00 Respiratory Rate 20 04/15/17 10:00 Blood Pressure 140/61 04/15/17 10:00 O2 Sat by Pulse Oximetry (%) 99 04/15/17 06:00 Constitutional: Yes: Well Nourished, Calm. No: No Distress Eyes: Yes: Conjunctiva Clear, EOM Intact HENT: Yes: Atraumatic, Normocephalic Neck: Yes: Supple, Trachea Midline Cardiovascular: Yes: Regular Rate and Rhythm Respiratory: Yes: Regular, CTA Bilaterally Gastrointestinal: Yes: Normal Bowel Sounds, Soft ...Rectal Exam: Yes: Deferred Renal/: Yes: WNL Musculoskeletal: Yes: WNL Extremities: Yes: WNL Edema: No Integumentary: Yes: WNL Neurological: Yes: WNL ...Motor Strength: WNL Psychiatric: Yes: WNL Labs: CBC, BMP 04/15/17 06:00 04/15/17 06:00 Assessment/Plan Assessment: 76 year old female with PMH of HTN, diabetes, and diverticulitis admitted to the ICU for severe anemia int he setting of BRBPR. Colonscopy performed this AM without event and only evidencing clots over diverticuli. CV: #HTN: Slightly hypertensive so will continue home meds -home home nifedipine, lisinopril GI #Lower GI bleed: - Scope unimpressive only showing non-bleeding diverticuli - Restarted full diet HEME: #Normocytic Anemia: Likely due to chronic blood loss and subsequent hemodilution (Drop in platelets with fluid resuscitation) vs. spurious lab value - Hgb above goal after 4 units PRBCs - Bleeding has ceased Endo: #NIDDM - Novolog sliding scale coverage FEN: - Full diet - replete K PPX: - SCDs - Eating Dispo: - No longer requires ICU level care - Full code
[2017-04-15] MEDS: NIFEdipine E.R 60 MG TABLET (UD) PO SCH (12:19)
[2017-04-15] MEDS: LISINOPRIL 5 MG TABLET (FP) PO SCH (12:20)
[2017-04-15] MEDS: MUPIROCIN 2% TOPICAL OINTMENT FOR DECOLONIZATION NS SCH (12:20)
--- NOTE | 2017-04-15 12:21 | PN ---
Teaching Attending Note Name of Resident: Magali Reddy ATTENDING PHYSICIAN STATEMENT I saw and evaluated the patient. I reviewed the resident's note and discussed the case with the resident. I agree with the resident's findings and plan as documented. SUBJECTIVE: Pt seen and examined in the ICU. s/p colonoscopy showing clotted blood with diverticulosis. No active bleeding noted. Responded appropriately to PRBC transfusions. OBJECTIVE: Last Vital Signs Temp Pulse Resp BP Pulse Ox 98.4 F 74 16 129/93 99 04/15/17 10:00 04/15/17 11:00 04/15/17 11:00 04/15/17 11:00 04/15/17 09:00 Intake & Output 04/12/17 04/13/17 04/14/17 04/15/17 23:59 23:59 23:59 23:59 Intake Total 550 100 Output Total 100 320 Balance 450 -220 Weight 55.338 kg 56.756 kg Gen: NAD at rest Heart: RRR Lung: decreased breath sounds at the bases Abd: soft, nontender Ext: no edema CBC, BMP 04/15/17 06:00 04/15/17 06:00 Active Medications Chlorhexidine Gluconate (Hibiclens For Decolonization -) 1 applic TP HS SHAWN Lisinopril (Prinivil) 5 mg PO DAILY SH[facility] Mupirocin (Bactroban Ointment (For Decolonization) -) 1 applic NS BID [facility] Stop: 04/19/17 21:59 Nifedipine (Procardia Xl -) 60 mg PO DAILY [facility] ASSESSMENT AND PLAN: GI Bleed likely Diverticulosis Acute Blood Loss Anemia HTN DM - monitor H/H - transfuse as needed - restart home meds - PO per GI - replete lytes - DVT prophylaxis - can monitor on floor
--- NOTE | 2017-04-15 18:01 | PN ---
Physical Exam: SUBJECTIVE: Patient seen and examined. Eating her lunch, s/p colonscopy, feels well. denies pain. OBJECTIVE: Vital Signs Period Temp Pulse Resp BP Sys/Castillo Pulse Ox Last 24 Hr 98 F-98.4 F 72-100 13-20 104-147/50-93 98-99 GENERAL: The patient is awake, alert, and fully oriented, in no acute distress. HEAD: Normal with no signs of trauma. EYES: PERRL, extraocular movements intact, sclera anicteric, conjunctiva clear. No ptosis. ENT: Ears normal, nares patent, oropharynx clear without exudates, moist mucous membranes. NECK: Trachea midline, full range of motion, supple. ABDOMEN: Soft, nontender, nondistended, normoactive bowel sounds, no guarding, no rebound, no hepatosplenomegaly, no masses. EXTREMITIES: 2+ pulses, warm, well-perfused, no edema. NEUROLOGICAL: Normal speech, gait not observed. PSYCH: Normal mood, normal affect. SKIN: Warm, dry, normal turgor, no rashes or lesions noted Laboratory Results - last 24 hr 04/14/17 04/14/17 04/14/17 12:29 16:30 19:30 WBC RBC Hgb Hct MCV MCH MCHC RDW Plt Count MPV Neutrophils % Lymphocytes % Monocytes % Eosinophils % Basophils % Hypochromia 2+ Platelet Estimate Anisocytosis 3+ Microcytosis 3+ Ovalocytes 1+ Sodium Potassium Chloride Carbon Dioxide Anion Gap BUN Creatinine Creat Clearance w eGFR POC Glucometer Random Glucose Lactic Acid Calcium Phosphorus Magnesium Total Bilirubin AST ALT Alkaline Phosphatase Total Protein Albumin Urine Color Colorless Urine Appearance Clear Urine pH 6.0 Ur Specific [place] 1.032 Urine Protein Negative Urine Glucose (UA) Negative Urine Ketones Negative Urine Blood Negative Urine Nitrite Negative Urine Bilirubin Negative Urine Urobilinogen Negative Ur Leukocyte Esterase Negative Blood Type A POSITIVE Antibody Screen Negative Crossmatch See Detail 04/14/17 04/15/17 04/15/17 19:50 06:00 06:00 WBC 14.8 H RBC 3.83 D Hgb 10.0 L D Hct 29.7 L D MCV 77.7 L D MCH 26.2 D MCHC 33.7 RDW 21.4 H D Plt Count 285 MPV 9.2 Neutrophils % 71.5 Lymphocytes % 21.0 Monocytes % 7.0 Eosinophils % 0.1 D Basophils % 0.4 Hypochromia Platelet Estimate Normal Anisocytosis Microcytosis Ovalocytes Sodium 144 Potassium 3.4 L Chloride 108 H Carbon Dioxide 26 Anion Gap 10 BUN 12 D Creatinine 0.6 Creat Clearance w eGFR > 60 POC Glucometer Random Glucose 83 D Lactic Acid Calcium 8.4 L Phosphorus 3.1 Magnesium 1.8 Total Bilirubin 1.5 H D AST 17 ALT 24 Alkaline Phosphatase 93 D Total Protein 5.4 L Albumin 2.8 L Urine Color Urine Appearance Urine pH Ur Specific [place] Urine Protein Urine Glucose (UA) Urine Ketones Urine Blood Urine Nitrite Urine Bilirubin Urine Urobilinogen Ur Leukocyte Esterase Blood Type A POSITIVE Antibody Screen Crossmatch 04/15/17 04/15/17 06:00 12:27 WBC RBC Hgb Hct MCV MCH MCHC RDW Plt Count MPV Neutrophils % Lymphocytes % Monocytes % Eosinophils % Basophils % Hypochromia Platelet Estimate Anisocytosis Microcytosis Ovalocytes Sodium Potassium Chloride Carbon Dioxide Anion Gap BUN Creatinine Creat Clearance w eGFR POC Glucometer 105.59777 Random Glucose Lactic Acid 1.3 Calcium Phosphorus Magnesium Total Bilirubin AST ALT Alkaline Phosphatase Total Protein Albumin Urine Color Urine Appearance Urine pH Ur Specific [place] Urine Protein Urine Glucose (UA) Urine Ketones Urine Blood Urine Nitrite Urine Bilirubin Urine Urobilinogen Ur Leukocyte Esterase Blood Type Antibody Screen Crossmatch Active Medications Generic Name Dose Route Start Last Admin Trade Name Freq PRN Reason Stop Dose Admin Chlorhexidine Gluconate 1 applic 04/14/17 22:00 Hibiclens For Decolonization - TP HS SHAWN Lisinopril 5 mg 04/15/17 10:32 04/15/17 12:20 Prinivil PO 5 mg DAILY SHAWN Administration Mupirocin 1 applic 04/14/17 22:00 04/15/17 12:20 Bactroban Ointment (For Decolonization) - NS 04/19/17 21:59 1 applic BID SHAWN Administration Nifedipine 60 mg 04/15/17 10:31 04/15/17 12:19 Procardia Xl - PO 60 mg DAILY SHAWN Administration ASSESSMENT/PLAN: Patient is a 76 year old female with a significant past medical history of HTN , diabetes, diverticulosis, and hemorrhoids, presented to the ED on 04/14/2017 complaining of diarrhea and bright red blood in stool. Denies chest pain, shortness of breath, and cough. Denies taking blood thinners , only on ASA 81mg daily at home. GI: Acute lower GI bleed Acute severe blood loss anemia hmg dropped to 4.9, transufed 4units of prbc and 1 unit of platelets (pt on home asa) Colonoscopy with diverticulois, hemorroids, no acute source of bleeding found Repeat CBC now Check CBC in a.m. Monitor Tolerating diet Hypertension, controlled Diabetes, BGMs ac/hs F.E.N. Fluids: tolerating PO Electrolytes: monitor Nutrition: regular Proph: DVT: SCDs GI Protonix
[2017-04-15 19:56] LABS: BASO % 0.4 % (0-2.0); EOS % 0.8 % (0-4.5); HEMATOCRIT 35.6 % (32.4-45.2); HEMOGLOBIN 11.7 GM/dL (10.7-15.3); LYMPH % 24.1 % (8-40); MCH 25.7 pg (25.7-33.7); MEAN PLT VOLUME 9.2 fl (7.5-11.1); MONO % 8.1 % (3.8-10.2); NEUT % 66.6 % (42.8-82.8); PLATELET COUNT 274 K/MM3 (134-434); RBC 4.56 M/mm3 (3.60-5.2); RDW 19.9 % (11.6-15.6); WHITE BLOOD COUNT 13.7 K/mm3 (4.0-10.0)
[2017-04-15 19:58] LABS: ADD RBC MORPHOLOGY YES
[2017-04-15 21:13] LABS: ANISOCYTOSIS 2+; MACROCYTOSIS 0; PLATELET ESTIMATE NORMAL
[2017-04-16] MEDS: MUPIROCIN 2% TOPICAL OINTMENT FOR DECOLONIZATION NS SCH ×2 (05:11→09:52)
[2017-04-16 06:32] VITALS: TEMP 97.9
[2017-04-16 06:53] LABS: HEMOGLOBIN 11.2 GM/dL (10.7-15.3); MCH 26.4 pg (25.7-33.7); MEAN CELL VOLUME 77.8 fl (80-96); PLATELET COUNT 265 K/MM3 (134-434); RBC 4.24 M/mm3 (3.60-5.2); RDW 20.1 % (11.6-15.6); WHITE BLOOD COUNT 11.7 K/mm3 (4.0-10.0)
[2017-04-16 07:40] LABS: ALBUMIN 2.7 g/dl (3.4-5.0); ALK PHOS 100 U/L (45-117); ANION GAP 9 (8-16); BILIRUBIN,TOTAL 0.4 mg/dL (0.2-1.0); BLOOD UREA NITROGEN 6 mg/dL (7-18); CALCIUM 8.8 mg/dL (8.5-10.1); CHLORIDE 108 mmol/L (98-107); CO2 27 mmol/L (21-32); CREATININE 0.5 mg/dL (0.55-1.02); GLUCOSE,RANDOM 84 mg/dL (74-106); MAGNESIUM 1.9 mg/dL (1.8-2.4); PHOSPHOROUS 3.1 mg/dL (2.5-4.9); POTASSIUM 3.3 mmol/L (3.5-5.1); SGOT/AST 16 U/L (15-37); SGPT/ALT 22 U/L (12-78); SODIUM 144 mmol/L (136-145); TOT PROT 5.6 g/dl (6.4-8.2)
--- NOTE | 2017-04-16 08:11 | PN ---
Physical Exam: SUBJECTIVE: Doing well this AM. No BMs since surgery but no bleeding from any GI tract and ready for DC today. OBJECTIVE: Vital Signs Period Temp Pulse Resp BP Sys/Castillo Pulse Ox Last 24 Hr 97.9 F-99.2 F 63-100 13-21 99-140/50-93 99-99 GENERAL: The patient is awake, alert, and fully oriented, in no acute distress. HEAD: Normal with no signs of trauma. EYES: PERRL, extraocular movements intact, sclera anicteric, conjunctiva clear. No ptosis. ENT: Ears normal, nares patent, oropharynx clear without exudates, moist mucous membranes. NECK: Trachea midline, full range of motion, supple. LUNGS: Breath sounds equal, clear to auscultation bilaterally, no wheezes, no crackles, no accessory muscle use. HEART: Regular rate and rhythm, S1, S2 without murmur, rub or gallop. ABDOMEN: Soft, nontender, nondistended, normoactive bowel sounds, no guarding, no rebound, no hepatosplenomegaly, no masses. EXTREMITIES: 2+ pulses, warm, well-perfused, no edema. NEUROLOGICAL: Cranial nerves II through XII grossly intact. Normal speech, gait not observed. PSYCH: Normal mood, normal affect. SKIN: Warm, dry, normal turgor, no rashes or lesions noted Laboratory Results - last 24 hr 04/15/17 04/15/17 04/15/17 06:00 12:27 17:40 WBC Corrected WBC (auto) RBC Hgb Hct MCV MCH MCHC RDW Plt Count MPV Neutrophils % Lymphocytes % Monocytes % Eosinophils % Basophils % Hypochromia Platelet Estimate Normal Polychromasia Poikilocytosis Anisocytosis Microcytosis Macrocytosis POC Glucometer 105.16422 118.25118 04/15/17 04/16/17 19:15 06:10 WBC 13.7 H 11.7 H Corrected WBC (auto) 13.70 RBC 4.56 4.24 Hgb 11.7 D 11.2 Hct 35.6 D 33.0 MCV 78.0 L 77.8 L MCH 25.7 26.4 MCHC 33.0 34.0 RDW 19.9 H 20.1 H Plt Count 274 265 MPV 9.2 9.0 Neutrophils % 66.6 Lymphocytes % 24.1 Monocytes % 8.1 Eosinophils % 0.8 D Basophils % 0.4 Hypochromia 0 Platelet Estimate Normal Polychromasia 1+ Poikilocytosis 1+ Anisocytosis 2+ Microcytosis 2+ Macrocytosis 0 POC Glucometer Active Medications Generic Name Dose Route Start Last Admin Trade Name Loyda PRN Reason Stop Dose Admin Chlorhexidine Gluconate 1 applic 04/14/17 22:00 04/16/17 05:11 Hibiclens For Decolonization - TP 1 applic HS SHAWN Administration Lisinopril 5 mg 04/15/17 10:32 04/15/17 12:20 Prinivil PO 5 mg DAILY SHAWN Administration Mupirocin 1 applic 04/14/17 22:00 04/16/17 05:11 Bactroban Ointment (For Decolonization) - NS 04/19/17 21:59 1 applic BID SHAWN Administration Nifedipine 60 mg 04/15/17 10:31 04/15/17 12:19 Procardia Xl - PO 60 mg DAILY SHAWN Administration ASSESSMENT/PLAN: 76 year old female with PMH of HTN, diabetes, and diverticulitis admitted to the ICU for severe anemia int he setting of BRBPR. Colonoscopy performed yesterday AM without event and only evidencing clots over diverticuli. Patient hasn't bled since and ready for discharge. CV: #HTN: Slightly hypertensive so will continue home meds -home home nifedipine, lisinopril GI #Lower GI bleed: - Scope unimpressive only showing non-bleeding diverticuli - Restarted full diet HEME: #Normocytic Anemia: Likely due to chronic blood loss and subsequent hemodilution (Drop in platelets with fluid resuscitation) vs. spurious lab value but responsive to 4 units PRBCs. - Bleeding has ceased Endo: #NIDDM - Novolog sliding scale coverage FEN: - Full diet - replete K PO before discharge PPX: - SCDs - Eating Dispo: - No longer requires ICU level care - Discharge today - Full code Visit type - Emergency Visit Emergency Visit: No - New Patient This patient is new to me today: No - Critical Care Critical Care patient: Yes Total Critical Care Time (in minutes): 35 Critical Care Statement: The care of this patient involved high complexity decision making to prevent further life threatening deterioration of the patient 's condition and/or to evaluate & treat vital organ system(s) failure or risk of failure. - Discharge Referral Referred to [facility] No
--- NOTE | 2017-04-16 08:19 | PN ---
Progress Note (short form) - Note Progress Note: Post op day#1.S/p Colonoscopy under TIVA uneventful.P63,BP116/54 and Spo2 97% on RA.Patient stable.No any anesthesia related problem.Patient DC from the anesthesia care.
--- NOTE | 2017-04-16 08:20 | DS ---
Physical Exam: SUBJECTIVE: Comfortable at rest, wants to go home. OBJECTIVE: hmg/hct stable overnight and this morning K. 3.3, to give Kdur 40mg x 1 now Discharge home with instructions to stop ASA until seen by PCP Colace/Miralax stool softeners daily Vital Signs Period Temp Pulse Resp BP Sys/Castillo Pulse Ox Last 24 Hr 97.9 F-99.2 F 63-100 13-21 99-140/50-93 99-99 PHYSICAL EXAM GENERAL: The patient is awake, alert, and fully oriented, in no acute distress. HEAD: Normal with no signs of trauma. EYES: PERRL, extraocular movements intact, sclera anicteric, conjunctiva clear. ENT: Ears normal, nares patent, oropharynx clear without exudates, moist mucous membranes. NECK: Trachea midline, full range of motion, supple. HEART: Regular rate and rhythm ABDOMEN: Soft, nontender, nondistended, normoactive bowel sounds, no guarding, no rebound, no hepatosplenomegaly, no masses. EXTREMITIES: no edema. NEUROLOGICAL: Normal speech, gait not observed. PSYCH: Normal mood, normal affect. LABS Laboratory Results - last 24 hr 04/15/17 04/15/17 04/15/17 06:00 12:27 17:40 WBC Corrected WBC (auto) RBC Hgb Hct MCV MCH MCHC RDW Plt Count MPV Neutrophils % Lymphocytes % Monocytes % Eosinophils % Basophils % Hypochromia Platelet Estimate Normal Polychromasia Poikilocytosis Anisocytosis Microcytosis Macrocytosis POC Glucometer 105.20543 118.01999 04/15/17 04/16/17 19:15 06:10 WBC 13.7 H 11.7 H Corrected WBC (auto) 13.70 RBC 4.56 4.24 Hgb 11.7 D 11.2 Hct 35.6 D 33.0 MCV 78.0 L 77.8 L MCH 25.7 26.4 MCHC 33.0 34.0 RDW 19.9 H 20.1 H Plt Count 274 265 MPV 9.2 9.0 Neutrophils % 66.6 Lymphocytes % 24.1 Monocytes % 8.1 Eosinophils % 0.8 D Basophils % 0.4 Hypochromia 0 Platelet Estimate Normal Polychromasia 1+ Poikilocytosis 1+ Anisocytosis 2+ Microcytosis 2+ Macrocytosis 0 POC Glucometer HOSPITAL COURSE: Date of Admission:04/14/17 Date of Discharge: 04/16/17 ASSESSMENT/PLAN: Patient is a 76 year old female with a significant past medical history of HTN , diabetes, diverticulosis, and hemorrhoids, presented to the ED on 04/14/2017 complaining of diarrhea and bright red blood in stool. Denies chest pain, shortness of breath, and cough. Denies taking blood thinners , only on ASA 81mg daily at home. GI: Acute lower GI bleed, resolved Acute severe blood loss anemia, resolved hmg dropped to 4.9 on admission, s/p 4 units of prbc and 1 unit of platelets ( pt on home asa) Colonoscopy with diverticulois, hemorroids, no acute source of bleeding found Repeat CBC stable, no further bleeding Tolerating diet Follow up with PCP for repeat blood work Stop ASA 81mg, until further directed by her primary Hypertension, controlled Mild hypokalemia, repleted Diabetes, continue home monitoring, outpatient followup blood sugars stable here Discharge home with PCP follow up. full code. x Minutes to complete discharge: 60 Discharge Summary Reason For Visit: RECTAL HEMORRHAGE Current Active Problems Diverticular hemorrhage (Acute) Rectal bleed (Acute) Symptomatic anemia (Acute) Condition: Stable - Instructions Diet, Activity, Other Instructions: Mrs. Hendricks: You were admitted to [facility] on 04/14/2017 for rectal bleeding. You have received 4 units of red blood cells and 1 unit of platelets. Please discontinue the Aspirin 81mg daily and do not resume unless instructed by your primary care provider. Please take a daily stool softner (can be purchased over the counter) colace so that you have regular daily bowel movements. If needed, you can also take Miralax daily (laxative) that can help you have a bowel movement. Please call me with any questions that you may have. [facility] @ [facility] Referrals: Desiree Gleason MD [Non Staff, Medical] - Disposition: HOME - Home Medications Comprehensive Discharge Medication List: Ambulatory Orders Lisinopril 5 mg PO DAILY 04/14/17 Nifedipine [Nifedipine ER] 60 mg PO DAILY 04/14/17 Docusate Sodium [Colace] 100 mg PO BID #60 capsule 04/16/17 This patient is new to me today: No Emergency Visit: Yes ED Registration Date: 04/14/17 Care time: The patient presented to the Emergency Department on the above date and was hospitalized for further evaluation of their emergent condition. Critical Care patient: Yes Total Critical Care Time (in minutes): 60 Critical Care Statement: The care of this patient involved high complexity decision making to prevent further life threatening deterioration of the patient 's condition and/or to evaluate & treat vital organ system(s) failure or risk of failure. - Discharge Referral Referred to [facility] No
[2017-04-16] MEDS ORDERED: POTASSIUM CHLORIDE TABS 20 MEQ TABLET.ER (FP) PO ONE ×2 (08:47→08:51)
[2017-04-16] MEDS: NIFEdipine E.R 60 MG TABLET (UD) PO SCH (09:52)
[2017-04-16] MEDS: LISINOPRIL 5 MG TABLET (FP) PO SCH (09:52)
--- NOTE | 2017-04-16 11:20 | PN ---
Teaching Attending Note Name of Resident: Magali Reddy ATTENDING PHYSICIAN STATEMENT I saw and evaluated the patient. I reviewed the resident's note and discussed the case with the resident. I agree with the resident's findings and plan as documented. SUBJECTIVE: Overall feels better. H&H stable. No bleeding overnight. Tolerated breakfast without issues. Intake & Output 04/13/17 04/14/17 04/15/17 04/16/17 23:59 23:59 23:59 23:59 Intake Total 550 500 350 Output Total 100 2820 1200 Balance 450 -2320 -850 Weight 122 lb 125 lb 2 oz Last Vital Signs Temp Pulse Resp BP Pulse Ox 97.9 F 63 18 116/54 99 04/16/17 06:00 04/16/17 06:00 04/16/17 09:00 04/16/17 06:00 04/16/17 09:00 Active Medications Chlorhexidine Gluconate (Hibiclens For Decolonization -) 1 applic TP HS COUNTS INCLUDE 234 BEDS AT THE [facility] Last Admin: 04/16/17 05:11 Dose: 1 applic Lisinopril (Prinivil) 5 mg PO DAILY COUNTS INCLUDE 234 BEDS AT THE [facility] Last Admin: 04/16/17 09:52 Dose: 5 mg Mupirocin (Bactroban Ointment (For Decolonization) -) 1 applic NS BID COUNTS INCLUDE 234 BEDS AT THE [facility] Stop: 04/19/17 21:59 Last Admin: 04/16/17 09:52 Dose: 1 applic Nifedipine (Procardia Xl -) 60 mg PO DAILY COUNTS INCLUDE 234 BEDS AT THE [facility] Last Admin: 04/16/17 09:52 Dose: 60 mg Gen: NAD at rest Heart: RRR Lung: decreased breath sounds at the bases Abd: soft, nontender Ext: no edema Laboratory Results - last 24 hr 04/15/17 04/15/17 04/15/17 12:27 17:40 19:15 WBC 13.7 H Corrected WBC (auto) 13.70 RBC 4.56 Hgb 11.7 D Hct 35.6 D MCV 78.0 L MCH 25.7 MCHC 33.0 RDW 19.9 H Plt Count 274 MPV 9.2 Neutrophils % 66.6 Lymphocytes % 24.1 Monocytes % 8.1 Eosinophils % 0.8 D Basophils % 0.4 Hypochromia 0 Platelet Estimate Normal Polychromasia 1+ Poikilocytosis 1+ Anisocytosis 2+ Microcytosis 2+ Macrocytosis 0 Sodium Potassium Chloride Carbon Dioxide Anion Gap BUN Creatinine Creat Clearance w eGFR POC Glucometer 105.22972 118.40422 Random Glucose Calcium Phosphorus Magnesium Total Bilirubin AST ALT Alkaline Phosphatase Total Protein Albumin 04/16/17 04/16/17 06:10 06:10 WBC 11.7 H Corrected WBC (auto) RBC 4.24 Hgb 11.2 Hct 33.0 MCV 77.8 L MCH 26.4 MCHC 34.0 RDW 20.1 H Plt Count 265 MPV 9.0 Neutrophils % Lymphocytes % Monocytes % Eosinophils % Basophils % Hypochromia Platelet Estimate Polychromasia Poikilocytosis Anisocytosis Microcytosis Macrocytosis Sodium 144 Potassium 3.3 L Chloride 108 H Carbon Dioxide 27 Anion Gap 9 BUN 6 L D Creatinine 0.5 L Creat Clearance w eGFR > 60 POC Glucometer Random Glucose 84 Calcium 8.8 Phosphorus 3.1 Magnesium 1.9 Total Bilirubin 0.4 D AST 16 ALT 22 Alkaline Phosphatase 100 Total Protein 5.6 L Albumin 2.7 L ASSESSMENT AND PLAN: GI Bleed likely Diverticulosis Acute Blood Loss Anemia HTN DM - PO as tolerated - Restart home meds - D/C planning Dr Sherwood
[2017-04-16 11:32] VITALS: BP 130/75; PULSE 76
[2017-04-16 13:46] LABS: BILIRUBIN,DIRECT < 0.2 mg/dL (0.0-0.2)
== END 2017-04-16 12:15 | disposition home or self-care (01) | DRG 392 ==
LOC: JER 11:56 → JERBED 17:59 → JICU 04-15 06:39
PROVIDERS: ADMIT Internal Medicine; ATTEND Nurse Practitioner Family
PROC: 30233N1 Transfusion of Nonautologous Red Blood Cells into Peripheral Vein, Percutaneous Approach (ICD-10-PCS; 2017-04-14)
PROC: 30233R1 Transfusion of Nonautologous Platelets into Peripheral Vein, Percutaneous Approach (ICD-10-PCS; 2017-04-14)
PROC: 0DJD8ZZ Inspection of Lower Intestinal Tract, Via Natural or Artificial Opening Endoscopic (ICD-10-PCS; principal; 2017-04-15 09:00)
DX: K57.90 Diverticulosis of intestine, part unspecified, without perforation or abscess without bleeding (principal); D62 Acute posthemorrhagic anemia; K92.2 Gastrointestinal hemorrhage, unspecified; I10 Essential (primary) hypertension; E11.9 Type 2 diabetes mellitus without complications; K64.8 Other hemorrhoids; E87.6 Hypokalemia
CPT/HCPCS: 36415; 36430; 36511; 71045-TC; 74177-TC; 80053; 81003; 82248; 82272; 82550; 82962; 83605; 83690; 83735; 84100; 84484; 85025; 85027; 85610; 86850; 86900; 86901; 86922; 87086; 93005; 93010; 99285-25; P9034; P9038; P9058

== ENCOUNTER 2018-04-27 13:05 | Emergency (ER) | payer OTHER ==
[2018-04-27 13:09] VITALS: PULSE 69; TEMP 97.4; BMI 25.3
[2018-04-27 14:17] VITALS: BP 153/74
[2018-04-27] MEDS ORDERED: FLUORESCEIN NA 1 EA STRIP OU ONE (14:29)
[2018-04-27] MEDS ORDERED: TETRACAINE 0.5% HCL 0.6ML DROPPER.BOTTLE OU ONE (14:30)
--- NOTE | 2018-04-27 14:30 | PDOC ---
History of Present Illness - General Chief Complaint: Blood Pressure Problem Stated Complaint: EYE PROBLEM Time Seen by Provider: 04/27/18 14:05 History Source: Patient Exam Limitations: No Limitations - History of Present Illness Initial Comments: 04/30/18 01:20 Pt is a 77yo F with PMH of DM, HTN, HLD presenting to ED with complaints of bilateral eye redness and pain. Pt said she had cataract surgery in August on the L eye and in November on the R eye. Since the operation she has been having pain in the eye with redness, photophobia and difficulty reading. She denies fevers, chills, eye pressure, headache, facial droop. She has seen her computer systems hardware analyst last month who gave her antibiotic eye drops. Pt states that the redness and pain has not been improving. Past History - Past Medical History Allergies/Adverse Reactions: Allergies Allergy/AdvReac Type Severity Reaction Status Date / Time Penicillins Allergy Verified 04/27/18 13:10 Home Medications: Ambulatory Orders Lisinopril 5 mg PO DAILY 04/14/17 Nifedipine [Nifedipine ER] 60 mg PO DAILY 04/14/17 Docusate Sodium [Colace] 100 mg PO BID #60 capsule 04/16/17 COPD: No Diabetes: Yes (TYPE 2) GI Disorders: Yes (GERD) HTN: Yes Hypercholesterolemia: Yes - Surgical History Neurologic Surgery: Yes (LT SHOULDER) - Suicide/Smoking/Psychosocial Hx Smoking History: Never smoked Have you smoked in the past 12 months: No Hx Alcohol Use: No Drug/Substance Use Hx: No Substance Use Type: None Hx Substance Use Treatment: No Review of Systems - Review of Systems Constitutional: No: Chills, Fever, Weakness HEENTM: Yes: See HPI, Eye Pain, Blurred Vision, Tearing. No: Ear Pain, Ear Discharge, Tinnitus, Nose Bleeding Respiratory: No: Cough, Shortness of Breath Cardiac (ROS): No: Chest Pain, Irregular Heart Rate, Lightheadedness ABD/GI: No: Symptoms Reported : No: Symptoms Reported Musculoskeletal: No: Symptoms Reported Integumentary: No: Symptoms Reported Neurological: No: Headache, Numbness, Paresthesia, Tingling, Tremors, Weakness, Ataxia, Dizziness *Physical Exam - Vital Signs Last Vital Signs Temp Pulse Resp BP Pulse Ox 97.4 F L 69 18 153/74 100 04/27/18 13:06 04/27/18 13:06 04/27/18 13:06 04/27/18 13:38 04/27/18 13:06 - Physical Exam General Appearance: Yes: Nourished, Appropriately Dressed. No: Apparent Distress HEENT: positive: EOMI, LAZARO, TMs Normal, Pharynx Normal, Photophobia, Other ( bilateral scleral injection. No lesions with fluorescin. OS 20/50, OD 20/70). negative: Nasal Congestion, Rhinorrhea, Sinus Tenderness, Orbits (no pain with orbit pressure) Neck: positive: Trachea midline, Supple. negative: Lymphadenopathy (R), Lymphadenopathy (L) Respiratory/Chest: positive: Lungs Clear, Normal Breath Sounds. negative: Rales , Rhonchi, Stridor, Wheezing Cardiovascular: positive: Regular Rhythm, Regular Rate, S1, S2. negative: Edema , JVD, Murmur Gastrointestinal/Abdominal: positive: Normal Bowel Sounds, Soft Musculoskeletal: positive: Normal Inspection. negative: CVA Tenderness Extremity: positive: Normal Capillary Refill Integumentary: positive: Normal Color, Dry, Warm Neurologic: positive: ophthalmology surgical technician II-XII NML intact, Fully Oriented, Alert, Normal Mood/ Affect, Normal Response, Motor Strength 5/5 Moderate Sedation - Procedure Monitoring Vital Signs: Procedure Monitoring Vital Signs Temperature 97.4 F L 04/27/18 13:06 Pulse Rate 69 04/27/18 13:06 Respiratory Rate 18 04/27/18 13:06 Blood Pressure 153/74 04/27/18 13:38 O2 Sat by Pulse Oximetry (%) 100 04/27/18 13:06 Medical Decision Making - Medical Decision Making 04/30/18 01:24 Pt is a 77yo F with PMH of DM, HTN, HLD presenting to ED with complaints of bilateral eye redness and pain. Ddx includes but not limited to GCA, glaucoma, conjunctivitis, iritis Low suspicion for GCA given pt does not have headache, symptoms began after cataract surgery and have been chronic. Tetracaine eyedrops placed. Pt reported reduction of symptoms. Fluorescin test did not show any corneal disruptions. Low suspicion for acute ophthalmologic emergency at this time. Will refer to Eye and Cataract specialists. Pt agreed to plan. Is otherwise able to see and is ambulatory. No acute process. Will DC. Given strict return precautions. *DC/Admit/Observation/Transfer Diagnosis at time of Disposition: Eye redness Eye pain Qualifiers: Laterality: bilateral Qualified Code(s): H57.13 - Ocular pain, bilateral - Discharge Dispostion Disposition: HOME Condition at time of disposition: Good Decision to Admit order: No - Referrals - Patient Instructions Printed Discharge Instructions: DI for Red Eye Additional Instructions: You were seen here today for evaluation of pain and redness of the eyes. It does not seem like an acute infection that requires admission to the hospital at this time. I recommend that you see the computer systems hardware analyst. You can go to the [facility] at [address] [place] [address]. [place] [address] Call [phone] to schedule an appointment. Come back to the emergency room if pain gets worse, you have infection, you have headache, you lose your vision, you have fever, or if any new concerning symptom develops. Thank you - Post Discharge Activity
[2018-04-27] MEDS ORDERED: TETRACAINE 0.5% OPHTH SOLN 2 ML BOTTLE ONE (14:32)
[2018-04-27] MEDS ORDERED: FLUORESCEIN NA 1 EA STRIP ONE (14:32)
--- NOTE | 2018-04-27 14:42 | PDOC ---
Attending Attestation - Resident Resident Name: Destiny Cano - ED Attending Attestation I have performed the following: I have examined & evaluated the patient, The case was reviewed & discussed with the resident, I agree w/resident's findings & plan, Exceptions are as noted - HPI HPI: 04/27/18 14:40 The patient is a 77 year old female with a PMH of DM, HTN, s/p cataract surgery of right eye in August 2017 and left eye in November 2017, presenting to the ER with bilateral eye redness, sensitivity to light, and pain since her surgeries last year. Patient states she saw an kiln stacker in March, and was given eye abx drops. Patient has been using her eye drops but has not noticed any improvement. Denies F/C. Denies any change in visual acuity. Denies headache. Denies any crusting of her eyes. Allergies: NKA Past surgical history: cataract surgery Social history: No reported alcohol, drug or cigarette use. - Physicial Exam PE: 04/27/18 14:38 GENERAL: Awake, alert, and fully oriented, in no acute distress. HEAD: No signs of trauma EYES: + bilateral conjunctival injection, PERRLA, EOMI, sclera anicteric ENT: Auricles normal inspection, hearing grossly normal, nares patent, oropharynx clear without exudates. Moist mucosa NECK: Nontender, no stepoffs, Normal ROM, supple, no lymphadenopathy, JVD, or masses LUNGS: Breath sounds equal, clear to auscultation bilaterally. No wheezes, and no crackles HEART: Regular rate and rhythm, normal S1 and S2, no murmurs, rubs or gallops ABDOMEN: Soft, nontender, normoactive bowel sounds. No guarding, no rebound. No masses EXTREMITIES: Normal range of motion, no edema. No clubbing or cyanosis. No cords, erythema, or tenderness NEUROLOGICAL: Cranial nerves II through XII intact. 5/5 strength and sensation in all extremities, Normal speech, normal gait, normal cerebellar function SKIN: Warm, Dry, normal turgor, no rashes or lesions noted. - Medical Decision Making 04/27/18 14:39 77 F with bilateral eye pain and redness x 7 months since cataract surgery. Pt with no change in visual acuity, no infectious symptoms. Has been using abx eyedrops with no relief. - Tetracaine - Fluorescein exam Appointment made for pt at [facility] tomorrow @ 1PM. 04/27/18 15:07 Fluorescein exam negative for abrasion/ulcer Pt is well appearing, with normal vitals. Clinically stable for DC at this time. I discussed the physical exam findings, ancillary test results and final diagnoses with the patient. I answered all of the patient's questions. The patient was satisfied with the care received and felt comfortable with the discharge plan and treatment plan. The patient agrees to follow up with the primary care physician within 24-72 hours.
== END 2018-04-27 15:22 | disposition home or self-care (01) ==
LOC: JER 13:05
DX: H57.13 Ocular pain, bilateral (principal); E78.00 Pure hypercholesterolemia, unspecified; K21.9 Gastro-esophageal reflux disease without esophagitis; I10 Essential (primary) hypertension; E11.9 Type 2 diabetes mellitus without complications
CPT/HCPCS: 99282-25

== ENCOUNTER 2018-09-24 07:43 | Inpatient (IN) | payer OTHER ==
[2018-09-24] MEDS ORDERED: ACETAMINOPHEN 1000 MG/100 ML VIAL (NON FORMULARY) IVPB ONE (08:17)
[2018-09-24] MEDS ORDERED: SODIUM CHLORIDE 0.9% 500 ML INFUS.BAG IV ONE (08:17)
--- NOTE | 2018-09-24 08:22 | PDOC ---
History of Present Illness - General Chief Complaint: Pain Stated Complaint: STOMACH PAIN Time Seen by Provider: 09/24/18 07:50 - History of Present Illness Initial Comments: Alicia Hendricks is a 78yo woman with a PMH of diet-controlled DM, HTN, cataracts s/ p surgery, h/o diverticuliitis twice, chronic constipation (takes miralax occasionally, usually as a BM every other day) who presents with 3 days of constipation and 9/10 left lower abdominal pain. She states that she was feeling OK yesterday, was able to eat normal meals without difficulty, and had some mild abdominal discomfort due to the constipation. This morning, the pain is severe and she has nausea and sweating as well. She denies any vomiting, fever, upper abdominal pain, dysuria or other recent symptoms. She states that the current pain feels just like her previous diverticulitis. Past History - Past Medical History Allergies/Adverse Reactions: Allergies Allergy/AdvReac Type Severity Reaction Status Date / Time Penicillins Allergy Verified 09/24/18 07:50 Home Medications: Ambulatory Orders Lisinopril 5 mg PO DAILY 04/14/17 Nifedipine [Nifedipine ER] 60 mg PO DAILY 04/14/17 Docusate Sodium [Colace] 100 mg PO BID #60 capsule 04/16/17 COPD: No Diabetes: Yes (TYPE 2) GI Disorders: Yes (GERD) HTN: Yes Hypercholesterolemia: Yes - Surgical History Neurologic Surgery: Yes (LT SHOULDER) - Suicide/Smoking/Psychosocial Hx Smoking History: Never smoked Have you smoked in the past 12 months: No Hx Alcohol Use: No Drug/Substance Use Hx: No Substance Use Type: None Hx Substance Use Treatment: No Review of Systems - Review of Systems Comments:: General: No fevers, no chills, no weight or appetite change, no malaise. + sweating HEENT: No changes in vision, no changes in hearing, no congestion, no sore throat CV: No chest pain, no palpitations, no LE edema Pulm: No SOB, no cough, no wheezing GI: See HPI : No frequency, no urgency, no dysuria Musc: No back pain, no joint swelling, no recent injury Skin: No rash, no lesions, no erythema Endo: No excessive thirst, no heat/cold intolerance Heme: No unusual bruising or bleeding, no swollen glands Neuro: No syncope, no numbness/tingling, no focal weakness Vasc: No claudication Psych: No recent change in mood, no SI or HI *Physical Exam - Vital Signs Last Vital Signs Temp Pulse Resp BP Pulse Ox 97.2 F L 60 18 151/67 100 09/24/18 07:50 09/24/18 07:50 09/24/18 07:50 09/24/18 07:50 09/24/18 07:50 - Physical Exam Comments: General: Appears uncomfortable but in no acute distress HEENT: Atraumatic, PERRL, EOMI, MMM, voice normal Cards: RRR, no murmur appreciated Pulm: Comfortable on room air, clear to auscultation bilaterally Abd: Soft, nondistended. TTP in LLQ. No rigidity, no rebound, no guarding. : No CVA tenderness Ext: Atraumatic. No LE edema. ROM intact Vasc: Extremities WWP Skin: Normal color, no rashes or lesions Neuro: A&Ox3, CN grossly intact, normal speech, motor/sensory grossly intact and symmetric Psych: Mood appropriate to situation ED Treatment Course - LABORATORY CBC & Chemistry Diagram: 09/24/18 08:40 09/24/18 10:45 - RADIOLOGY Radiology Studies Ordered: Category Date Time Status ABDOMEN & PELVIS CT WITH CONTR [CT] Stat CT Scan 09/24/18 08:17 Ordered Medical Decision Making - Medical Decision Making 09/24/18 08:18 Alicia Hendricks is a 78yo woman with a PMH of diet-controlled DM, HTN, cataracts s/ p surgery, h/o diverticuliitis twice, chronic constipation (takes miralax occasionally, usually as a BM every other day) who presents with 3 days of constipation and 9/10 left lower abdominal pain that feels similar to her previous episodes of diverticulitis. She denies any vomiting or PO intolerance, fever, or s/s of systemic infection. - Pain most likely due to diverticulitis vs constipation - CBC, CMP, mag, EKG, CXR, UA. CT abd/pelvis with PO and IV contrast - IV acetaminophen, 1L NS 09/24/18 09:02 - Pt had large soft bowel movement. Symptoms unlikely due to constipation - Will continue workup for diverticulitis - EKG completed, sinus bradycardia, HR 55, normal intervals, normal axis, No t- wave or ST changes - Zofran for nausea 09/24/18 10:08 - Labs notable for leukocytosis to 17. - Chemistry slightly hemolized; potassium at 5.7 is likely falsely elevated. Will recheck after hydration - Finished PO contrast; will take to CT at 11am 09/24/18 13:35 - CT completed. Indicates colitis of the transverse and descending colon - Continued pain, now 01/19 - 3rd episode of bowel incontinence - Morphine, IVF, NPO - Will admit 09/24/18 14:19 - Spoke to Dr Tavarez. Will admit to med/surg Discussed with Dr Mccauley. Caryn Brantley PGY1 *DC/Admit/Observation/Transfer Diagnosis at time of Disposition: Colitis - Discharge Dispostion Decision to Admit order: Yes - Referrals Referrals: Desiree Gleason MD [Primary Care Provider] - - Patient Instructions - Post Discharge Activity
[2018-09-24] MEDS ORDERED: ONDANSETRON 4 MG/2 ML VIAL ONE (08:25)
[2018-09-24] MEDS ORDERED: ONDANSETRON 4 MG/2 ML VIAL IVPUSH ONE (08:44)
[2018-09-24 08:57] LABS: BASO % 0.4 % (0-2.0); EOS % 0.3 % (0-4.5); HEMATOCRIT 41.1 % (32.4-45.2); HEMOGLOBIN 13.7 GM/dL (10.7-15.3); LYMPH % 32.9 % (8-40); MCH 29.5 pg (25.7-33.7); MCHC 33.2 g/dl (32.0-36.0); MEAN CELL VOLUME 88.7 fl (80-96); MEAN PLT VOLUME 9.1 fl (7.5-11.1); MONO % 4.5 % (3.8-10.2); NEUT % 61.9 % (42.8-82.8); PLATELET COUNT 326 K/MM3 (134-434); RBC 4.63 M/mm3 (3.60-5.2); RDW 14.6 % (11.6-15.6); WHITE BLOOD COUNT 16.8 K/mm3 (4.0-10.0)
[2018-09-24 09:14] LABS: ALBUMIN 3.6 g/dl (3.4-5.0); BILIRUBIN,TOTAL 0.4 mg/dL (0.2-1); BLOOD UREA NITROGEN 16.1 mg/dL (7-18); CALCIUM 9.9 mg/dL (8.5-10.1); CREATININE 0.9 mg/dL (0.55-1.3); POTASSIUM 5.7 mmol/L (3.5-5.1); TOT PROT 7.7 g/dl (6.4-8.2)
[2018-09-24 11:00] LABS: EPI CELLS 0.6 /HPF (0-5/HPF); HYALINE CASTS 3 /lpf (0-8); PH,URINE 6.5 (5.0-8.0); URINE APPEARANCE CLEAR; URINE BACTERIA 13.7 /hpf (NEGATIVE); URINE BILIRUBIN NEGATIVE (NEGATIVE); URINE COLOR YELLOW; URINE GLUCOSE (UA) NEGATIVE (NEGATIVE); URINE KETONE NEGATIVE (NEGATIVE); URINE LEUK ESTERASE TRACE (NEGATIVE); URINE NITRITE NEGATIVE (NEGATIVE); URINE PROTEIN NEGATIVE (NEGATIVE); URINE RBC 2 /hpf (0-4); URINE UROBILINOGEN 0.2 mg/dL (0.2-1.0); URINE WBC 2 /hpf (0-5)
[2018-09-24 11:19] LABS: BLOOD UREA NITROGEN 15.4 mg/dL (7-18); CALCIUM 9.2 mg/dL (8.5-10.1); CREATININE 0.7 mg/dL (0.55-1.3); POTASSIUM 3.9 mmol/L (3.5-5.1)
--- NOTE | 2018-09-24 11:24 | PDOC ---
Attending Attestation - Resident Resident Name: KaronCaryn - ED Attending Attestation I have performed the following: I have examined & evaluated the patient, The case was reviewed & discussed with the resident, I agree w/resident's findings & plan, Exceptions are as noted - HPI HPI: 09/24/18 11:21 78 F with h/o DM, HTN, diverticulitis, presents to ED with LLQ pain x 3 days. Pt reports constant pain, non-radiating. Also endorses constipation, last BM 3 days ago. Denies F/C. Denies N/V. Denies CP/SOB. - Physicial Exam PE: 09/24/18 11:21 "GENERAL: Awake, alert, and fully oriented, in no acute distress. HEAD: No signs of trauma EYES: PERRLA, EOMI, sclera anicteric, conjunctiva clear ENT: Auricles normal inspection, hearing grossly normal, nares patent, oropharynx clear without exudates. Moist mucosa NECK: Nontender, no stepoffs, Normal ROM, supple, no lymphadenopathy, JVD, or masses LUNGS: Breath sounds equal, clear to auscultation bilaterally. No wheezes, and no crackles HEART: Regular rate and rhythm, normal S1 and S2, no murmurs, rubs or gallops ABDOMEN: + LLQ TTP, normoactive bowel sounds. No guarding, no rebound. No masses EXTREMITIES: Normal range of motion, no edema. No clubbing or cyanosis. No cords, erythema, or tenderness NEUROLOGICAL: Cranial nerves II through XII intact. 5/5 strength and sensation in all extremities, Normal speech, normal gait, normal cerebellar function SKIN: Warm, Dry, normal turgor, no rashes or lesions noted. - Medical Decision Making 09/24/18 11:21 78 F with LLQ pain. Suspect diverticulitis/colitis. Pain may also be 2/2 constipation, though pt had several large BMs in ED after receiving gastrografin and still has persistent pain. - Labs, UA - CTAP - IVF, pain control 09/24/18 14:08 CT shows colitis Pt reporting 10/10 pain at this time Will give morphine Admit to hospitalist
[2018-09-24] MEDS ORDERED: morphine CARPU-JECT 4 MG/1 ML DISP.SYRIN IVPUSH ONE (13:34)
[2018-09-24] MEDS: SODIUM CHLORIDE 1,000 ML IV SCH ×2 (13:50→19:35)
[2018-09-24] MEDS ORDERED: morphine CARPU-JECT 2 MG/1 ML DISP.SYRIN IVPUSH PRN (14:35)
[2018-09-24] MEDS ORDERED: ONDANSETRON 4 MG/2 ML VIAL IVPUSH PRN (14:35)
[2018-09-24] MEDS ORDERED: MORPHINE SULFATE 2 MG/ML VIAL ONE ×2 (14:40→14:41)
[2018-09-24] MEDS: INSULIN SLIDING SCALE (NOVOLOG) 1 VIAL SQ SCH ×2 (16:43→21:40)
[2018-09-24 17:12] VITALS: BMI 28.1
--- NOTE | 2018-09-24 17:56 | HP ---
Admitting History and Physical - Admission Chief Complaint: abdominal pain History of Present Illness: 78 year old female with a PMHx diverticulitis, HTN, diet controlled DM2, chronic constipation presents with LLQ pain starting last night. Patient states that she had some hot pepper soup yesterday, usually spicy foods bother her. Last night she felt bloated, did not have a BM in 3 days, she usually goes every other day. This morning she woke up with 9/10 pain in LLQ with chills and sweats so she came to ED for further evaluation. No fever, no cp, sob, palpitations, rectal bleeding. History Source: Patient Limitations to Obtaining History: No Limitations - Past Medical History Cardiovascular: Yes: HTN Gastrointestinal: Yes: Constipation, Diverticulitis, Diverticulosis ...: No Endocrine: Yes: Diabetes Mellitus (diet controlled) - Past Surgical History Past Surgical History: Yes: Cataract Removal Additional Past Surgical History: shoulder surgery - Smoking History Smoking history: Never smoked Have you smoked in the past 12 months: No - Alcohol/Substance Use Hx Alcohol Use: No History of Substance Use: reports: None - Social History Usual Living Arrangement: Yes: With Spouse ADL: Independent Home Medications - Allergies Allergies/Adverse Reactions: Allergies Allergy/AdvReac Type Severity Reaction Status Date / Time Penicillins Allergy Verified 09/24/18 07:50 - Home Medications Home Medications: Ambulatory Orders Lisinopril 5 mg PO DAILY 04/14/17 Nifedipine [Nifedipine ER] 60 mg PO DAILY 04/14/17 Docusate Sodium [Colace] 100 mg PO BID #60 capsule 04/16/17 Family Disease History - Family Disease History Family History: Denies Family Disease History: Other: Sister (htn) Review of Systems - Review of Systems Constitutional: reports: Chills, Diaphoresis, Loss of Appetite Eyes: reports: No Symptoms HENT: reports: No Symptoms Neck: reports: No Symptoms Cardiovascular: reports: No Symptoms Respiratory: reports: No Symptoms Gastrointestinal: reports: Abdominal Pain, Bloating, Constipation, Nausea, Vomiting Genitourinary: reports: No Symptoms Breasts: reports: No Symptoms Reported Musculoskeletal: reports: No Symptoms Integumentary: reports: No Symptoms Neurological: reports: No Symptoms Endocrine: reports: No Symptoms Hematology/Lymphatic: reports: No Symptoms Psychiatric: reports: No Symptoms Physical Examination Vital Signs: Vital Signs Temperature 98 F 09/24/18 17:06 Pulse Rate 72 09/24/18 17:06 Respiratory Rate 20 09/24/18 17:06 Blood Pressure 123/56 L 09/24/18 17:06 O2 Sat by Pulse Oximetry (%) 99 09/24/18 15:17 Constitutional: Yes: Well Nourished, No Distress, Calm Eyes: Yes: WNL, Conjunctiva Clear, EOM Intact HENT: Yes: WNL, Atraumatic, Normocephalic Neck: Yes: WNL, Supple, Trachea Midline Cardiovascular: Yes: WNL, Regular Rate and Rhythm Respiratory: Yes: WNL, Regular, CTA Bilaterally Gastrointestinal: Yes: WNL, Normal Bowel Sounds, Soft, Abdomen, Obese, Tenderness (mild LLQ tenderness to deep palpation) Musculoskeletal: Yes: WNL Extremities: Yes: WNL Edema: No Peripheral Pulses WNL: Yes ...Motor Strength: WNL Psychiatric: Yes: WNL, Alert, Oriented Labs: CBC, BMP 09/24/18 08:40 09/24/18 10:45 Imaging - Results Cat Scan: Report Reviewed Problem List - Problems (1) HTN (hypertension) Code(s): I10 - ESSENTIAL (PRIMARY) HYPERTENSION (2) Colitis Code(s): K52.9 - NONINFECTIVE GASTROENTERITIS AND COLITIS, UNSPECIFIED Assessment/Plan 78 year old female with a PMHx diverticulitis, HTN, diet controlled DM2, chronic constipation presents with LLQ abdominal pain 1) Diffuse Colitis-infectious/inflammatory less likely ischemic -start IV abx-levaquin and flagyl -NPO -IVF -pain control -anti-emetics -patient had 3 BMs in ED after drinking contrast -GI and ID eval 2) HTN-resume lisinopril 3) DM2 diet controlled, ISS for coverage if needed
[2018-09-24] MEDS: HEPARIN NA (PORCINE) 5,000 UNITS/ML 1ML VIAL SQ SCH (21:09)
[2018-09-24] MEDS ORDERED: CIPROFLOXACIN 400 MG/D5W 400 MG/200 ML IVPB IVPB SCH (22:00)
[2018-09-25] MEDS: INSULIN SLIDING SCALE (NOVOLOG) 1 VIAL SQ SCH ×4 (06:02→21:50)
[2018-09-25 07:29] LABS: BLOOD UREA NITROGEN 8.2 mg/dL (7-18); CALCIUM 8.5 mg/dL (8.5-10.1); CREATININE 0.6 mg/dL (0.55-1.3); POTASSIUM 3.7 mmol/L (3.5-5.1)
[2018-09-25 07:50] LABS: BASO % 0.3 % (0-2.0); HEMATOCRIT 36.5 % (32.4-45.2); MCH 29.3 pg (25.7-33.7); MCHC 32.9 g/dl (32.0-36.0); MEAN CELL VOLUME 89.1 fl (80-96); MEAN PLT VOLUME 9.5 fl (7.5-11.1); MONO % 9.3 % (3.8-10.2); NEUT % 62.4 % (42.8-82.8); RBC 4.09 M/mm3 (3.60-5.2); RDW 15.2 % (11.6-15.6); WHITE BLOOD COUNT 7.2 K/mm3 (4.0-10.0)
[2018-09-25 08:55] LABS: PLATELET COUNT 271 K/MM3 (134-434)
[2018-09-25] MEDS: LACTOBACILLUS ACIDOPHILUS 1 TABLET PO SCH (10:26)
[2018-09-25] MEDS: HEPARIN NA (PORCINE) 5,000 UNITS/ML 1ML VIAL SQ SCH ×2 (10:26→21:50)
[2018-09-25] MEDS: LISINOPRIL 5 MG TABLET (FP) PO SCH (10:27)
[2018-09-25] MEDS: NIFEdipine E.R 60 MG TABLET (UD) PO SCH (10:28)
--- NOTE | 2018-09-25 10:35 | CON.GI ---
Consult Consult Specialty:: GI coverage - History of Present Illness History of Present Illness: 78 y/o F with PMH of diverticular bleed, s/p colonoscopy by Dr Vasquez 07/2017 was admitted with 3 day history of constipation, llq pain 10/[address] Overnight she had a bowel movement which gave complete relief of her symptoms. - Past Medical History Cardio/Vascular: Yes: HTN Gastrointestinal: Yes: Constipation, Diverticulitis, Diverticulosis ...: No Endocrine: Yes: Diabetes Mellitus (diet controlled) - Past Surgical History Past Surgical History: Yes: Cataract Removal - Alcohol/Substance Use Hx Alcohol Use: No History of Substance Use: reports: None - Smoking History Smoking history: Never smoked Have you smoked in the past 12 months: No - Social History ADL: Independent Home Medications - Allergies Allergies/Adverse Reactions: Allergies Allergy/AdvReac Type Severity Reaction Status Date / Time Penicillins Allergy Verified 09/24/18 07:50 - Home Medications Home Medications: Ambulatory Orders Lisinopril 5 mg PO DAILY 04/14/17 Nifedipine [Nifedipine ER] 60 mg PO DAILY 04/14/17 Docusate Sodium [Colace] 100 mg PO BID #60 capsule 04/16/17 Family Disease History - Family Disease History Family Disease History: Other: Sister (htn) Physical Exam-GI Vital Signs: Vital Signs Temperature 98.6 F 09/25/18 06:00 Pulse Rate 66 09/25/18 06:00 Respiratory Rate 20 09/25/18 06:00 Blood Pressure 115/56 L 09/25/18 06:00 O2 Sat by Pulse Oximetry (%) 99 09/25/18 06:00 Labs: CBC, BMP 09/25/18 06:30 09/25/18 06:30
--- NOTE | 2018-09-25 12:56 | CON.ID ---
Consult Consult Specialty:: infectious diseases Referred by:: Dr Ruiz Reason for Consultation:: abd pain,diverticulitis - History of Present Illness Chief Complaint: abd pain History of Present Illness: 78 year old female with a PMHx diverticulitis, HTN, diet controlled DM2, chronic constipation presents with LLQ pain starting last night. Patient states that she had some hot pepper soup yesterday, usually spicy foods bother her. Last night she felt bloated, did not have a BM in 3 days, she usually goes every other day. This morning she woke up with 9/10 pain in LLQ with chills and sweats so she came to ED for further evaluation. No fever, no cp, sob, palpitations, rectal bleeding. according to the patient she has had this attack now probably 3rd time started on levaquin and flagyl - History Source History Provided By: Patient Limitations to Obtaining History: No Limitations - Past Medical History Cardio/Vascular: Yes: HTN Gastrointestinal: Yes: Constipation, Diverticulitis, Diverticulosis ...: No Endocrine: Yes: Diabetes Mellitus (diet controlled) - Past Surgical History Past Surgical History: Yes: Cataract Removal - Alcohol/Substance Use Hx Alcohol Use: No History of Substance Use: reports: None - Smoking History Smoking history: Never smoked Have you smoked in the past 12 months: No - Social History ADL: Independent Home Medications - Allergies Allergies/Adverse Reactions: Allergies Allergy/AdvReac Type Severity Reaction Status Date / Time Penicillins Allergy Verified 09/24/18 07:50 - Home Medications Home Medications: Ambulatory Orders Lisinopril 5 mg PO DAILY 04/14/17 Nifedipine [Nifedipine ER] 60 mg PO DAILY 04/14/17 Docusate Sodium [Colace] 100 mg PO BID #60 capsule 04/16/17 Family Disease History - Family Disease History Family Disease History: Other: Sister (htn) Review of Systems - Review of Systems Constitutional: reports: No Symptoms Eyes: reports: No Symptoms HENT: reports: No Symptoms Neck: reports: No Symptoms Cardiovascular: reports: No Symptoms Respiratory: reports: No Symptoms Gastrointestinal: reports: Abdominal Pain (llq) Genitourinary: reports: No Symptoms Musculoskeletal: reports: No Symptoms Integumentary: reports: No Symptoms Neurological: reports: No Symptoms Endocrine: reports: No Symptoms Hematology/Lymphatic: reports: No Symptoms Psychiatric: reports: No Symptoms Physical Exam Vital Signs: Vital Signs Temperature 98.6 F 09/25/18 06:00 Pulse Rate 66 09/25/18 06:00 Respiratory Rate 20 09/25/18 06:00 Blood Pressure 115/56 L 09/25/18 06:00 O2 Sat by Pulse Oximetry (%) 99 09/25/18 06:00 Constitutional: Yes: Well Nourished, Calm, Mild Distress Eyes: Yes: Conjunctiva Clear HENT: Yes: Atraumatic Neck: Yes: Supple, Trachea Midline Cardiovascular: Yes: Regular Rate and Rhythm Respiratory: Yes: Regular, CTA Bilaterally Gastrointestinal: Yes: Soft, Hypoactive Bowel Sounds, Tenderness (left lower quadrant) Musculoskeletal: Yes: WNL Extremities: Yes: WNL Neurological: Yes: Alert, Oriented Psychiatric: Yes: Alert, Oriented Labs: CBC, BMP 09/25/18 06:30 09/25/18 06:30 Imaging - Results Cat Scan: Report Reviewed, Image Reviewed Assessment/Plan Problem List - Problems (1) HTN (hypertension) Code(s): I10 - ESSENTIAL (PRIMARY) HYPERTENSION (2) Colitis Code(s): K52.9 - NONINFECTIVE GASTROENTERITIS AND COLITIS, UNSPECIFIED htn dm plan continue current mgmt iv fluids monitor wbc rest as per the team
--- NOTE | 2018-09-25 16:27 | PN ---
Physical Exam: SUBJECTIVE: Patient seen and examined is doing better ,abd pain improved, OBJECTIVE: Vital Signs Period Temp Pulse Resp BP Sys/Castillo Pulse Ox Last 24 Hr 98 F-98.7 F 66-72 20-20 115-135/56-61 99-99 GENERAL: The patient is awake, alert, and fully oriented, in no acute distress. HEAD: Normal with no signs of trauma. EYES: PERRL, extraocular movements intact, sclera anicteric, conjunctiva clear. No ptosis. ENT: Ears normal, nares patent, oropharynx clear without exudates, moist mucous membranes. NECK: Trachea midline, full range of motion, supple. LUNGS: Breath sounds equal, clear to auscultation bilaterally, no wheezes, no crackles, no accessory muscle use. HEART: Regular rate and rhythm, S1, S2 without murmur, rub or gallop. ABDOMEN: Soft, nontender, nondistended, normoactive bowel sounds, no guarding, no rebound, no hepatosplenomegaly, no masses. EXTREMITIES: 2+ pulses, warm, well-perfused, no edema. NEUROLOGICAL: Cranial nerves II through XII grossly intact. Normal speech, gait not observed. PSYCH: Normal mood, normal affect. SKIN: Warm, dry, normal turgor, no rashes or lesions noted Laboratory Results - last 24 hr 09/24/18 09/24/18 09/25/18 16:40 21:26 05:46 WBC RBC Hgb Hct MCV MCH MCHC RDW Plt Count MPV Absolute Neuts (auto) Neutrophils % Lymphocytes % Monocytes % Eosinophils % Basophils % Nucleated RBC % Sodium Potassium Chloride Carbon Dioxide Anion Gap BUN Creatinine Est GFR (CKD-EPI)AfAm Est GFR (CKD-EPI)NonAf POC Glucometer 102 98 93 Random Glucose Calcium 09/25/18 09/25/18 09/25/18 06:30 06:30 10:34 WBC 7.2 RBC 4.09 Hgb 12.0 Hct 36.5 MCV 89.1 MCH 29.3 MCHC 32.9 RDW 15.2 Plt Count 271 MPV 9.5 Absolute Neuts (auto) 4.5 Neutrophils % 62.4 Lymphocytes % 27.0 Monocytes % 9.3 D Eosinophils % 1.0 D Basophils % 0.3 Nucleated RBC % 0 Sodium 143 Potassium 3.7 Chloride 111 H Carbon Dioxide 26 Anion Gap 7 L BUN 8.2 Creatinine 0.6 Est GFR (CKD-EPI)AfAm 101.90 Est GFR (CKD-EPI)NonAf 87.92 POC Glucometer 92 Random Glucose 84 Calcium 8.5 Active Medications Generic Name Dose Route Start Last Admin Trade Name Freq PRN Reason Stop Dose Admin Heparin Sodium (Porcine) 5,000 unit 09/24/18 22:00 09/25/18 10:26 Heparin - SQ 5,000 unit BID SHAWN Administration Sodium Chloride 1,000 mls @ 100 mls/hr 09/24/18 13:45 09/24/18 19:35 Normal Saline - IV 100 mls/hr ASDIR SHAWN Administration Sodium Chloride 1,000 mls @ 100 mls/hr 09/24/18 14:45 Normal Saline - IV ASDIR SHAWN Metronidazole 500 mg in 100 mls @ 100 mls/hr 09/24/18 18:00 09/25/18 10:25 Flagyl 500mg Premixed Ivpb - IVPB 100 mls/hr Q8H-IV SHAWN Administration Levofloxacin 500 mg in 100 mls @ 100 mls/hr 09/24/18 17:00 09/24/18 17:38 Levaquin 500 Mg Premixed Ivpb - IVPB 100 mls/hr Q24H SHAWN Administration Insulin Aspart 1 vial 09/24/18 16:30 09/25/18 10:50 Novolog Vial Sliding Scale - SQ Not Given ACHS SHAWN Protocol Lactobacillus Acidophilus 1 tab 09/25/18 10:00 09/25/18 10:26 Bacid - PO 1 tab DAILY SHAWN Administration Lisinopril 5 mg 09/25/18 10:00 09/25/18 10:27 Prinivil PO 5 mg DAILY SHAWN Administration Morphine Sulfate 2 mg 09/24/18 14:35 Morphine Injection - IVPUSH Q6H PRN PAIN LEVEL 6-10 Nifedipine 60 mg 09/25/18 10:00 09/25/18 10:28 Procardia Xl - PO 60 mg DAILY SHAWN Administration ASSESSMENT/PLAN: 8 year old female with a PMHx diverticulitis, HTN, diet controlled DM2, chronic constipation presents with LLQ abdominal pain 1) Diffuse Colitis-infectious/inflammatory less likely ischemic resolving , -ON IV abx-levaquin and flagyl -NPO -IVF -pain control -anti-emetics, will discuss with GI and ID , -GI and ID eval 2) HTN-resume lisinopril 3) DM2 diet controlled, ISS for coverage if needed Problem List - Problems (1) Colitis Code(s): K52.9 - NONINFECTIVE GASTROENTERITIS AND COLITIS, UNSPECIFIED (2) HTN (hypertension) Code(s): I10 - ESSENTIAL (PRIMARY) HYPERTENSION Visit type - Emergency Visit Emergency Visit: Yes ED Registration Date: 09/24/18 Care time: The patient presented to the Emergency Department on the above date and was hospitalized for further evaluation of their emergent condition. - New Patient This patient is new to me today: Yes Date on this admission: 09/25/18 - Critical Care Critical Care patient: No - Discharge Referral Referred to [facility] Yes
--- NOTE | 2018-09-25 16:58 | EKG ---
Test Reason : Blood Pressure : / mmHG Vent. Rate : 060 BPM Atrial Rate : 060 BPM P-R Int : 122 ms QRS Dur : 082 ms QT Int : 418 ms P-R-T Axes : 052 041 033 degrees QTc Int : 418 ms NORMAL SINUS RHYTHM POSSIBLE LEFT ATRIAL ENLARGEMENT BORDERLINE ECG WHEN COMPARED WITH ECG OF 24-SEP-2018 07:44, NO SIGNIFICANT CHANGE WAS FOUND Confirmed by MD BATOOL, KARIE ([id number]) on 09/25/2018 4:58:38 PM Referred By: Marilu SOSA Confirmed By:KARIE RENAE MD
[2018-09-25] MEDS: SODIUM CHLORIDE 1,000 ML IV SCH ×2 (17:19)
[2018-09-26] MEDS: SODIUM CHLORIDE 1,000 ML IV SCH ×4 (05:27→17:11)
[2018-09-26] MEDS: INSULIN SLIDING SCALE (NOVOLOG) 1 VIAL SQ SCH ×4 (05:59→21:24)
[2018-09-26 06:54] LABS: BASO % 0.4 % (0-2.0); EOS % 2.2 % (0-4.5); HEMATOCRIT 33.7 % (32.4-45.2); HEMOGLOBIN 11.3 GM/dL (10.7-15.3); LYMPH % 37.4 % (8-40); MCH 29.8 pg (25.7-33.7); MCHC 33.5 g/dl (32.0-36.0); MEAN CELL VOLUME 88.7 fl (80-96); MEAN PLT VOLUME 9.3 fl (7.5-11.1); MONO % 10.5 % (3.8-10.2); NEUT % 49.5 % (42.8-82.8); RDW 14.9 % (11.6-15.6); WHITE BLOOD COUNT 5.9 K/mm3 (4.0-10.0)
[2018-09-26 07:26] LABS: ALBUMIN 2.8 g/dl (3.4-5.0); BILIRUBIN,TOTAL 0.4 mg/dL (0.2-1); BLOOD UREA NITROGEN 4.9 mg/dL (7-18); CALCIUM 8.4 mg/dL (8.5-10.1); CREATININE 0.6 mg/dL (0.55-1.3); POTASSIUM 3.4 mmol/L (3.5-5.1); TOT PROT 5.6 g/dl (6.4-8.2)
[2018-09-26 08:29] LABS: PLATELET COUNT 241 K/MM3 (134-434)
[2018-09-26] MEDS: HEPARIN NA (PORCINE) 5,000 UNITS/ML 1ML VIAL SQ SCH ×2 (09:18→21:22)
[2018-09-26] MEDS: LISINOPRIL 5 MG TABLET (FP) PO SCH (09:18)
[2018-09-26] MEDS: NIFEdipine E.R 60 MG TABLET (UD) PO SCH (09:18)
[2018-09-26] MEDS: LACTOBACILLUS ACIDOPHILUS 1 TABLET PO SCH (09:18)
--- NOTE | 2018-09-26 09:58 | PN ---
Progress Note, Physician History of Present Illness: stable feels better abd pain improved - Current Medication List Current Medications: Active Medications Heparin Sodium (Porcine) (Heparin -) 5,000 unit SQ BID [facility] Last Admin: 09/26/18 09:18 Dose: 5,000 unit Sodium Chloride (Normal Saline -) 1,000 mls @ 100 mls/hr IV ASDIR [facility] Last Admin: 09/26/18 09:22 Dose: 100 mls/hr Sodium Chloride (Normal Saline -) 1,000 mls @ 100 mls/hr IV ASDIR [facility] Last Admin: 09/25/18 17:19 Dose: Not Given Metronidazole (Flagyl 500mg Premixed Ivpb -) 500 mg in 100 mls @ 100 mls/hr IVPB Q8H-IV [facility] Last Admin: 09/26/18 09:18 Dose: 100 mls/hr Levofloxacin (Levaquin 500 Mg Premixed Ivpb -) 500 mg in 100 mls @ 100 mls/hr IVPB Q24H [facility] Last Admin: 09/25/18 17:20 Dose: 100 mls/hr Insulin Aspart (Novolog Vial Sliding Scale -) 1 vial SQ ACHS [facility]; Protocol Last Admin: 09/26/18 05:59 Dose: Not Given Lactobacillus Acidophilus (Bacid -) 1 tab PO DAILY [facility] Last Admin: 09/26/18 09:18 Dose: 1 tab Lisinopril (Prinivil) 5 mg PO DAILY [facility] Last Admin: 09/26/18 09:18 Dose: 5 mg Morphine Sulfate (Morphine Injection -) 2 mg IVPUSH Q6H PRN PRN Reason: PAIN LEVEL 6-10 Nifedipine (Procardia Xl -) 60 mg PO DAILY [facility] Last Admin: 09/26/18 09:18 Dose: 60 mg - Objective Vital Signs: Vital Signs Temperature 98.4 F 09/26/18 06:31 Pulse Rate 60 09/26/18 06:31 Respiratory Rate 20 09/26/18 06:31 Blood Pressure 121/62 09/26/18 06:31 O2 Sat by Pulse Oximetry (%) 99 09/25/18 22:00 Constitutional: Yes: No Distress, Calm Cardiovascular: Yes: Regular Rate and Rhythm Respiratory: Yes: Regular, CTA Bilaterally Gastrointestinal: Yes: Soft, Hypoactive Bowel Sounds, Tenderness (improving) Musculoskeletal: Yes: WNL Extremities: Yes: WNL Neurological: Yes: Alert, Oriented Psychiatric: Yes: Alert, Oriented Labs: CBC, BMP 09/26/18 06:20 09/26/18 06:20 Assessment/Plan Problem List - Problems (1) HTN (hypertension) Code(s): I10 - ESSENTIAL (PRIMARY) HYPERTENSION (2) Colitis Code(s): K52.9 - NONINFECTIVE GASTROENTERITIS AND COLITIS, UNSPECIFIED htn dm plan continue current mgmt abx monitor wbc rest as per the team
--- NOTE | 2018-09-26 11:35 | PN ---
Progress Note, Physician Chief Complaint: abdominal pain History of Present Illness: Patient is a 78 year old female with a PMHx diverticulitis, HTN, diet controlled DM2 and chronic constipation. She presents with LLQ pain with 9/10 pain in LLQ with chills and diaphoresis. She came to ED for further evaluation. - Current Medication List Current Medications: Active Medications Heparin Sodium (Porcine) (Heparin -) 5,000 unit SQ BID [facility] Last Admin: 09/26/18 09:18 Dose: 5,000 unit Sodium Chloride (Normal Saline -) 1,000 mls @ 100 mls/hr IV [facility] Last Admin: 09/26/18 09:22 Dose: 100 mls/hr Sodium Chloride (Normal Saline -) 1,000 mls @ 100 mls/hr IV [facility] Last Admin: 09/25/18 17:19 Dose: Not Given Metronidazole (Flagyl 500mg Premixed Ivpb -) 500 mg in 100 mls @ 100 mls/hr IVPB Q8H-IV [facility] Last Admin: 09/26/18 09:18 Dose: 100 mls/hr Levofloxacin (Levaquin 500 Mg Premixed Ivpb -) 500 mg in 100 mls @ 100 mls/hr IVPB Q24H [facility] Last Admin: 09/25/18 17:20 Dose: 100 mls/hr Insulin Aspart (Novolog Vial Sliding Scale -) 1 vial SQ ACHS [facility]; Protocol Last Admin: 09/26/18 05:59 Dose: Not Given Lactobacillus Acidophilus (Bacid -) 1 tab PO DAILY [facility] Last Admin: 09/26/18 09:18 Dose: 1 tab Lisinopril (Prinivil) 5 mg PO DAILY [facility] Last Admin: 09/26/18 09:18 Dose: 5 mg Morphine Sulfate (Morphine Injection -) 2 mg IVPUSH Q6H PRN PRN Reason: PAIN LEVEL 6-10 Nifedipine (Procardia Xl -) 60 mg PO DAILY [facility] Last Admin: 09/26/18 09:18 Dose: 60 mg - Objective Vital Signs: Vital Signs Temperature 98.4 F 09/26/18 06:31 Pulse Rate 60 09/26/18 06:31 Respiratory Rate 20 09/26/18 06:31 Blood Pressure 121/62 09/26/18 06:31 O2 Sat by Pulse Oximetry (%) 99 09/25/18 22:00 Constitutional: Yes: Well Nourished, No Distress, Calm Eyes: Yes: WNL HENT: Yes: WNL Neck: Yes: WNL Cardiovascular: Yes: WNL, Regular Rate and Rhythm Respiratory: Yes: WNL, Regular, CTA Bilaterally Gastrointestinal: Yes: Soft, Hyperactive Bowel Sounds ...Rectal Exam: Yes: Deferred Genitourinary: Yes: WNL Breast(s): Yes: WNL Musculoskeletal: Yes: WNL Extremities: Yes: WNL Integumentary: Yes: WNL Labs: CBC, BMP 09/26/18 06:20 09/26/18 06:20 Problem List - Problems (1) Abdominal pain Assessment/Plan: Diffuse Colitis-infectious/inflammatory less likely ischemic, resolving. on IV antibiotics of Levaquin and Flagyl tolerating diet, will advance to full liquid no nausea or vomiting GI and ID following Code(s): R10.9 - UNSPECIFIED ABDOMINAL PAIN (2) Colitis Assessment/Plan: GI following advance diet a tolerated. GI follow up as an outpatient on d/c Code(s): K52.9 - NONINFECTIVE GASTROENTERITIS AND COLITIS, UNSPECIFIED (3) HTN (hypertension) Assessment/Plan: controlled, continue home meds Code(s): I10 - ESSENTIAL (PRIMARY) HYPERTENSION (4) Diabetes Assessment/Plan: controlled diabetes glucometer called in for home use hmga1c in a.m. Code(s): E11.9 - TYPE 2 DIABETES MELLITUS WITHOUT COMPLICATIONS (5) Prophylactic measure Assessment/Plan: fen tolerating po monitor electrolytes advance to full liquids scds ambulation full code Code(s): Z29.9 - ENCOUNTER FOR PROPHYLACTIC MEASURES, UNSPECIFIED Visit type - Emergency Visit Emergency Visit: Yes ED Registration Date: 09/24/18 Care time: The patient presented to the Emergency Department on the above date and was hospitalized for further evaluation of their emergent condition. - New Patient This patient is new to me today: Yes Date on this admission: 09/26/18 - Critical Care Critical Care patient: No - Discharge Referral Referred to [facility].: No
--- NOTE | 2018-09-26 14:41 | PN.GI ---
GI Progress Note Subjective: Pt seen/examined at bedside, feels better, tolerating clear liquid diet. Abdominal pain nearly resolved, denies n/v, fever/chills. Reported loose stool upon admission, now better, had soft bm today, no blood. - Objective Vital Signs: Vital Signs Temperature 98.4 F 09/26/18 14:22 Pulse Rate 62 09/26/18 14:22 Respiratory Rate 20 09/26/18 14:22 Blood Pressure 108/58 L 09/26/18 14:22 O2 Sat by Pulse Oximetry (%) 99 09/25/18 22:00 Constitutional: Well Nourished, No Distress, Calm Cardiovascular: Yes: WNL, Regular Rate and Rhythm Respiratory: Yes: WNL, Regular, CTA Bilaterally ...Palpate: Yes: Other (Abd soft, nt, nd) Labs: CBC, BMP 09/26/18 06:20 09/26/18 06:20 Problem List - Problems (1) Abdominal pain Assessment/Plan: 78yo female h/o diverticular disease/diverticulitis, HTN, DM2, chronic constipation presents with LLQ pain and leucocytosis s/p CT revealing thickening at transverse and left colon, cannot exclude ischemic vs infectious colitis vs possible underdistension. Less likely diverticulitis. Clinically improved. Last colonoscopy in 04/2017 revealing sigmoid diverticulosis otherwise unremarkable. -Continue supportive measures -Continue IV antibiotics -Diet as tolerated -If loose stool recommend check C difficile and ova/parasites -Would consider colonoscopy once further clinically improved. Pt states she is wanting to go home and had been following with Dr. Meera Dietrich therefore pending dispo recommend close GI outpt follow up. Code(s): R10.9 - UNSPECIFIED ABDOMINAL PAIN
--- NOTE | 2018-09-26 15:16 | EKG ---
Test Reason : Blood Pressure : / mmHG Vent. Rate : 055 BPM Atrial Rate : 055 BPM P-R Int : 128 ms QRS Dur : 082 ms QT Int : 436 ms P-R-T Axes : 061 044 034 degrees QTc Int : 417 ms SINUS BRADYCARDIA POSSIBLE LEFT ATRIAL ENLARGEMENT BORDERLINE ECG WHEN COMPARED WITH ECG OF 14-APR-2017 12:47, T WAVE VARIATION Confirmed by JOHN MCNALLY MD ([id number]) on 09/26/2018 3:15:55 PM Referred By: Confirmed By:JOHN MCNALLY MD
[2018-09-26] MEDS ORDERED: INSULIN (NOVOLOG) ASPART 100 UNITS/ML 10ML VIAL ONE (21:11)
[2018-09-27] MEDS: SODIUM CHLORIDE 1,000 ML IV SCH (06:18)
[2018-09-27] MEDS: INSULIN SLIDING SCALE (NOVOLOG) 1 VIAL SQ SCH ×2 (06:19→12:08)
[2018-09-27 07:44] LABS: BASO % 0.3 % (0-2.0); EOS % 2.1 % (0-4.5); HEMATOCRIT 36.1 % (32.4-45.2); LYMPH % 33.5 % (8-40); MCH 29.5 pg (25.7-33.7); MCHC 33.1 g/dl (32.0-36.0); MEAN PLT VOLUME 9.3 fl (7.5-11.1); MONO % 10.3 % (3.8-10.2); NEUT % 53.8 % (42.8-82.8); PLATELET COUNT 279 K/MM3 (134-434); RBC 4.06 M/mm3 (3.60-5.2); RDW 14.9 % (11.6-15.6); WHITE BLOOD COUNT 6.5 K/mm3 (4.0-10.0)
[2018-09-27 08:12] LABS: BILIRUBIN,TOTAL 0.4 mg/dL (0.2-1); BLOOD UREA NITROGEN 4.5 mg/dL (7-18); CALCIUM 8.9 mg/dL (8.5-10.1); CREATININE 0.6 mg/dL (0.55-1.3); MAGNESIUM 2.1 mg/dL (1.8-2.4); POTASSIUM 3.5 mmol/L (3.5-5.1); TOT PROT 5.9 g/dl (6.4-8.2)
--- NOTE | 2018-09-27 08:16 | PN ---
Progress Note, Physician Chief Complaint: abdominal pain History of Present Illness: Patient is a 78 year old female with a PMHx diverticulitis, HTN, diet controlled DM2 and chronic constipation. She presents with LLQ pain with 9/10 pain in LLQ with chills and diaphoresis. She came to ED for further evaluation. - Current Medication List Current Medications: Active Medications Heparin Sodium (Porcine) (Heparin -) 5,000 unit SQ BID [facility] Last Admin: 09/26/18 21:22 Dose: 5,000 unit Sodium Chloride (Normal Saline -) 1,000 mls @ 100 mls/hr IV ASDIR [facility] Last Admin: 09/27/18 06:18 Dose: 100 mls/hr Metronidazole (Flagyl 500mg Premixed Ivpb -) 500 mg in 100 mls @ 100 mls/hr IVPB Q8H-IV [facility] Last Admin: 09/27/18 02:48 Dose: 100 mls/hr Levofloxacin (Levaquin 500 Mg Premixed Ivpb -) 500 mg in 100 mls @ 100 mls/hr IVPB Q24H [facility] Last Admin: 09/26/18 17:08 Dose: 100 mls/hr Insulin Aspart (Novolog Vial Sliding Scale -) 1 vial SQ ACHS [facility]; Protocol Last Admin: 09/27/18 06:19 Dose: Not Given Lactobacillus Acidophilus (Bacid -) 1 tab PO DAILY [facility] Last Admin: 09/26/18 09:18 Dose: 1 tab Lisinopril (Prinivil) 5 mg PO DAILY [facility] Last Admin: 09/26/18 09:18 Dose: 5 mg Morphine Sulfate (Morphine Injection -) 2 mg IVPUSH Q6H PRN PRN Reason: PAIN LEVEL 6-10 Nifedipine (Procardia Xl -) 60 mg PO DAILY [facility] Last Admin: 09/26/18 09:18 Dose: 60 mg - Objective Vital Signs: Vital Signs Temperature 98.6 F 09/27/18 05:37 Pulse Rate 61 09/27/18 05:37 Respiratory Rate 20 09/27/18 05:37 Blood Pressure 140/64 09/27/18 05:37 O2 Sat by Pulse Oximetry (%) 99 09/26/18 21:00 Labs: CBC, BMP 09/27/18 06:48 Impression/Plan Impression/Plan: Problem List - Problems (1) Abdominal pain Assessment/Plan: Diffuse Colitis-infectious/inflammatory less likely ischemic, resolving. on IV antibiotics of Levaquin and Flagyl tolerating diet, will advance to full liquid no nausea or vomiting GI and ID following Code(s): R10.9 - UNSPECIFIED ABDOMINAL PAIN (2) Colitis Assessment/Plan: GI following advance diet a tolerated. GI follow up as an outpatient on d/c Code(s): K52.9 - NONINFECTIVE GASTROENTERITIS AND COLITIS, UNSPECIFIED (3) HTN (hypertension) Assessment/Plan: controlled, continue home meds Code(s): I10 - ESSENTIAL (PRIMARY) HYPERTENSION (4) Diabetes Assessment/Plan: controlled diabetes glucometer called in for home use hmga1c in a.m. Code(s): E11.9 - TYPE 2 DIABETES MELLITUS WITHOUT COMPLICATIONS (5) Prophylactic measure Assessment/Plan: fen tolerating po monitor electrolytes advance to full liquids scds ambulation full code
[2018-09-27] MEDS ORDERED: POTASSIUM CHLORIDE TABS 20 MEQ TABLET.ER (FP) PO ONE (09:00)
[2018-09-27 09:01] VITALS: BP 155/75; PULSE 55; TEMP 98.4
[2018-09-27] MEDS: LACTOBACILLUS ACIDOPHILUS 1 TABLET PO SCH (09:19)
[2018-09-27] MEDS: HEPARIN NA (PORCINE) 5,000 UNITS/ML 1ML VIAL SQ SCH (09:19)
[2018-09-27] MEDS: NIFEdipine E.R 60 MG TABLET (UD) PO SCH (09:19)
[2018-09-27] MEDS: LISINOPRIL 5 MG TABLET (FP) PO SCH (09:19)
--- NOTE | 2018-09-27 12:43 | DS ---
Physical Examination Vital Signs: Vital Signs Temperature 98.4 F 09/27/18 09:00 Pulse Rate 55 L 09/27/18 09:00 Respiratory Rate 18 09/27/18 09:00 Blood Pressure 155/75 09/27/18 09:00 O2 Sat by Pulse Oximetry (%) 99 09/26/18 21:00 Constitutional: Yes: Well Nourished, No Distress, Calm Eyes: Yes: WNL, Conjunctiva Clear, EOM Intact HENT: Yes: WNL, Atraumatic, Normocephalic Neck: Yes: WNL, Supple, Trachea Midline Cardiovascular: Yes: WNL, Regular Rate and Rhythm Respiratory: Yes: WNL, Regular, CTA Bilaterally Gastrointestinal: Yes: WNL, Normal Bowel Sounds, Soft ...Rectal Exam: Yes: Deferred Renal/: Yes: WNL Musculoskeletal: Yes: WNL Extremities: Yes: WNL Edema: No Peripheral Pulses WNL: Yes Integumentary: Yes: WNL Neurological: Yes: WNL, Alert, Oriented ...Motor Strength: WNL Psychiatric: Yes: WNL, Alert, Oriented Labs: CBC, BMP 09/27/18 06:48 09/27/18 06:48 Discharge Summary Reason For Visit: NON-SPECIFIC COLITIS Current Active Problems Abdominal pain (Acute) Colitis (Acute) Diabetes (Acute) HTN (hypertension) (Acute) Prophylactic measure (Acute) Hospital Course: Problem List - Problems (1) Abdominal pain Assessment/Plan: Diffuse Colitis-infectious/inflammatory less likely ischemic, resolving. COurse of IV antibiotics of Levaquin and Flagyl, will change to oral to go home tolerating diet, will resume regualr diet upon discharge (2) Colitis GI follow up as an outpatient on d/c (3) HTN (hypertension) controlled, continue home meds (4) Diabetes controlled diabetes glucometer called in for home use Condition: Improved - Instructions Diet, Activity, Other Instructions: resume home diet Disposition: HOME - Home Medications Comprehensive Discharge Medication List: Ambulatory Orders Lisinopril 5 mg PO DAILY 04/14/17 Nifedipine [Nifedipine ER] 60 mg PO DAILY 04/14/17 Docusate Sodium [Colace] 100 mg PO BID #60 capsule 04/16/17 Alcohol Antiseptic Pads [Alcohol Prep Pads] 1 each TP ACHS #100 med..pad Lancets [Lancets Ultra Thin] 1 each ACHS #100 each 09/26/18 Miscellaneous Medical Supply [Glucometer Device] 1 each ASDIR #1 kit Miscellaneous Medical Supply [Glucometer Test Strips #100] 1 each ASDIR #1 box 09/26/18 This patient is new to me today: Yes Date on this admission: 09/27/18 Emergency Visit: Yes ED Registration Date: 09/24/18 Care time: The patient presented to the Emergency Department on the above date and was hospitalized for further evaluation of their emergent condition. Critical Care patient: No - Discharge Referral Referred to [facility] Med [facility].C.: No
== END 2018-09-27 14:44 | disposition home or self-care (01) | DRG 394 ==
LOC: JER 07:43 → JERBED 14:10 → J6S 15:50
PROVIDERS: ADMIT Internal Medicine; ATTEND Nurse Practitioner Acute Care
DX: K55.9 Vascular disorder of intestine, unspecified (principal); A09 Infectious gastroenteritis and colitis, unspecified; I10 Essential (primary) hypertension; E11.9 Type 2 diabetes mellitus without complications; R10.32 Left lower quadrant pain
CPT/HCPCS: 36415; 74177-TC; 80048; 80053; 81003; 82962; 83036; 83735; 85025; 93005; 93010; 99285-25; J0131; J1644; J7030

== ENCOUNTER 2023-02-06 13:18 | Emergency (ER) | payer OTHER ==
[2023-02-06 13:24] VITALS: BMI 25.7
[2023-02-06] MEDS ORDERED: ACETAMINOPHEN 1000 MG/100 ML BAG IVPB ONE (14:15)
[2023-02-06] MEDS ORDERED: SODIUM CHLORIDE 0.9% 500 ML INFUS.BAG IV ONE (14:15)
[2023-02-06] MEDS ORDERED: ACETAMINOPHEN INJECTION 100 ML IVPB ONE (14:25)
[2023-02-06 14:32] LABS: BASO % 0.3 % (0-2.0); EOS % 0.4 % (0-4.5); HEMATOCRIT 39.4 % (32.4-45.2); HEMOGLOBIN 13.1 GM/dL (10.7-15.3); LYMPH % 16.2 % (8-40); MCH 28.9 pg (25.7-33.7); MCHC 33.4 g/dl (32.0-36.0); MEAN CELL VOLUME 86.7 fl (80-96); MEAN PLT VOLUME 8.7 fl (7.5-11.1); MONO % 9.1 % (3.8-10.2); PLATELET COUNT 254 10^3/uL (134-434); RBC 4.55 M/mm3 (3.60-5.2); RDW 14.4 % (11.6-15.6); WHITE BLOOD COUNT 8.6 K/mm3 (4.0-10.0)
[2023-02-06 14:36] LABS: VENOUS BASE EXCESS 0.4 mmol/L (-2-2); VENOUS O2 SATURATION 98.4 % (70-80); VENOUS PCO2 31.1 mmHg (38-52); VENOUS PH 7.485 (7.310-7.410)
[2023-02-06 15:07] LABS: CHLORIDE 106 mmol/L (98-107); POTASSIUM 3.6 mmol/L (3.5-5.1); SODIUM 138 mmol/L (136-145)
[2023-02-06 15:09] LABS: ALBUMIN 3.8 g/dl (3.4-5.0); ANION GAP 5 mmol/L (4-13); CALCIUM 9.3 mg/dL (8.5-10.1); CO2 26 mmol/L (21-32); GLUCOSE,RANDOM 92 mg/dL (74-106)
[2023-02-06 15:12] LABS: CREATININE 0.6 mg/dL (0.55-1.3); SGOT/AST 28 U/L (15-37); SGPT/ALT 48 U/L (13-61)
[2023-02-06 15:14] LABS: BILIRUBIN,TOTAL 0.5 mg/dL (0.2-1); TOT PROT 7.3 g/dl (6.4-8.2)
[2023-02-06 15:15] LABS: ALK PHOS 160 U/L (45-117)
[2023-02-06 16:04] VITALS: BP 133/73; PULSE 80; RESP 18; TEMP 98.6
== END 2023-02-06 16:18 | disposition home or self-care (01) ==
LOC: JER 13:18
PROC: 3E033NZ Introduction of Analgesics, Hypnotics, Sedatives into Peripheral Vein, Percutaneous Approach (ICD-10-PCS; principal; 2023-02-06)
DX: R09.81 Nasal congestion (principal); R05.9 Cough, unspecified; R50.9 Fever, unspecified; R51.9 Headache, unspecified; U07.1 COVID-19
CPT/HCPCS: 0241U-QW; 36415; 71045-TC-FY; 80053; 82550; 82553; 82803; 83605; 84484; 85025; 86850; 86900; 86901; 87040; 87086; 93005; 93010; 99285-25

== ENCOUNTER 2023-09-08 03:40 | Emergency (ER) | payer OTHER ==
[2023-09-08 03:44] VITALS: BMI 26.4
[2023-09-08 05:18] LABS: INR 0.96 (0.83-1.09); PROTHROMBIN TIME (PATIENT) 10.9 SEC (9.7-13.0)
[2023-09-08 05:19] LABS: VENOUS PCO2 45.6 mmHg (38-52); VENOUS PH 7.325 (7.310-7.410)
[2023-09-08 05:29] LABS: BASO % 0.9 % (0-2.0); EOS % 2.9 % (0-4.5); HEMATOCRIT 40.8 % (32.4-45.2); HEMOGLOBIN 13.5 GM/dL (10.7-15.3); LYMPH % 51.2 % (8-40); MCH 29.4 pg (25.7-33.7); MEAN PLT VOLUME 9.3 fl (7.5-11.1); MONO % 6.4 % (3.8-10.2); NEUT % 38.6 % (42.8-82.8); PLATELET COUNT 309 10^3/uL (134-434); RBC 4.58 M/mm3 (3.60-5.2); RDW 15.2 % (11.6-15.6); WHITE BLOOD COUNT 9.3 K/mm3 (4.0-10.0)
[2023-09-08 05:30] LABS: POTASSIUM 4.3 mmol/L (3.5-5.1)
[2023-09-08 05:36] LABS: ALBUMIN 3.8 g/dl (3.4-5.0); BLOOD UREA NITROGEN 11.8 mg/dL (7-18); CALCIUM 9.7 mg/dL (8.5-10.1); CREATININE 0.7 mg/dL (0.55-1.3); MAGNESIUM 2.3 mg/dL (1.8-2.4)
[2023-09-08 05:38] LABS: BILIRUBIN,TOTAL 0.4 mg/dL (0.2-1); TOT PROT 7.5 g/dl (6.4-8.2)
[2023-09-08 05:48] LABS: EPI CELLS 4 /uL (0-25.1); HYALINE CASTS 1 /uL (0-3.1); PH,URINE 6.5 (5.0-8.0); URINE APPEARANCE CLEAR; URINE BACTERIA 22 /uL (0-1359); URINE BILIRUBIN NEGATIVE (NEGATIVE); URINE COLOR YELLOW; URINE GLUCOSE (UA) NEGATIVE (NEGATIVE); URINE KETONE NEGATIVE (NEGATIVE); URINE LEUK ESTERASE 2+ (NEGATIVE); URINE NITRITE NEGATIVE (NEGATIVE); URINE PROTEIN NEGATIVE (NEGATIVE); URINE RBC 8 /uL (0-23.9); URINE UROBILINOGEN 0.2 mg/dL (0.2-1.0); URINE WBC 38 /uL (0-25.8)
[2023-09-08 08:23] VITALS: BP 140/56; PULSE 65; RESP 20; TEMP 97.4
== END 2023-09-08 09:52 | disposition home or self-care (01) ==
LOC: JER 03:40
DX: R06.02 Shortness of breath (principal); R53.1 Weakness
CPT/HCPCS: 0241U-QW; 36415; 71045-TC-FY; 80053; 81003; 82803; 83735; 84484; 85025; 85379; 85610; 85730; 87086; 93005; 93010; 99285-25

== ENCOUNTER 2024-04-12 20:55 | Inpatient (IN) | payer OTHER ==
[2024-04-12 21:04] VITALS: BMI 26.4
[2024-04-12 22:47] LABS: BASO % 0.2 % (0-2.0); EOS % 0.1 % (0-4.5); HEMATOCRIT 39.9 % (32.4-45.2); HEMOGLOBIN 13.3 GM/dL (10.7-15.3); LYMPH % 4.1 % (8-40); MCH 29.4 pg (25.7-33.7); MCHC 33.4 g/dl (32.0-36.0); MEAN PLT VOLUME 8.9 fl (7.5-11.1); MONO % 4.6 % (3.8-10.2); PLATELET COUNT 271 10^3/uL (134-434); RBC 4.53 M/mm3 (3.60-5.2); RDW 14.9 % (11.6-15.6); WHITE BLOOD COUNT 14.7 K/mm3 (4.0-10.0)
[2024-04-12] MEDS ORDERED: BENZOCAINE/MENTH/CETYLPYRD CL 1 EACH LOZENGE MM ONE (22:47)
[2024-04-12] MEDS: BENZOCAINE/MENTH/CETYLPYRD CL 1 EACH LOZENGE MM ONE (22:53)
[2024-04-12] MEDS ORDERED: ACETAMINOPHEN INJECTION 100 ML ONE (23:05)
[2024-04-12 23:24] LABS: POTASSIUM 5.8 mmol/L (3.5-5.1)
[2024-04-12 23:25] LABS: ALBUMIN 3.6 g/dl (3.4-5.0); BLOOD UREA NITROGEN 7.9 mg/dL (7-18); CALCIUM 9.4 mg/dL (8.5-10.1)
[2024-04-12 23:30] LABS: BILIRUBIN,TOTAL 0.8 mg/dL (0.2-1); CREATININE 0.8 mg/dL (0.55-1.3); TOT PROT 7.4 g/dl (6.4-8.2)
[2024-04-12 23:58] LABS: ANISOCYTOSIS 1+; MACROCYTOSIS 0
[2024-04-13] MEDS: LACTATED RINGERS SOLUTION 1000 ML INFUS.BAG IV ONE (01:06)
[2024-04-13] MEDS: OSELTAMIVIR PHOSPHATE 75 MG CAPSULE PO SCH ×3 (01:06→11:04)
[2024-04-13] MEDS: ACETAMINOPHEN 1000 MG/100 ML BAG IVPB ONE (01:06)
[2024-04-13 05:10] LABS: POTASSIUM 3.6 mmol/L (3.5-5.1)
[2024-04-13 05:13] LABS: ALBUMIN 3.4 g/dl (3.4-5.0); BLOOD UREA NITROGEN 6.6 mg/dL (7-18); MAGNESIUM 2.1 mg/dL (1.8-2.4)
[2024-04-13 05:16] LABS: CREATININE 0.6 mg/dL (0.55-1.3); PHOSPHOROUS 2.8 mg/dL (2.5-4.9)
[2024-04-13 05:18] LABS: BILIRUBIN,TOTAL 0.6 mg/dL (0.2-1); TOT PROT 6.6 g/dl (6.4-8.2)
[2024-04-13] MEDS: INSULIN ASPART SLIDING SCALE (NOVOLOG) 1 VIAL SQ SCH (06:20)
[2024-04-13 09:54] LABS: BASO % 0.2 % (0-2.0); HEMATOCRIT 37.5 % (32.4-45.2); HEMOGLOBIN 12.7 GM/dL (10.7-15.3); LYMPH % 6.9 % (8-40); MCHC 33.8 g/dl (32.0-36.0); MEAN CELL VOLUME 88.8 fl (80-96); MEAN PLT VOLUME 9.3 fl (7.5-11.1); MONO % 6.1 % (3.8-10.2); NEUT % 86.8 % (42.8-82.8); PLATELET COUNT 232 10^3/uL (134-434); RBC 4.22 M/mm3 (3.60-5.2); RDW 15.1 % (11.6-15.6); WHITE BLOOD COUNT 9.8 K/mm3 (4.0-10.0)
[2024-04-13] MEDS: ENOXAPARIN NA (PORCINE) 40 MG/0.4 ML DISP.SYRIN SQ SCH (10:50)
[2024-04-13] MEDS: DOCUSATE SODIUM 100 MG CAPSULE (FP) PO SCH (10:53)
[2024-04-13] MEDS ORDERED: OSELTAMIVIR PHOSPHATE 75 MG CAPSULE PO SCH (10:53)
[2024-04-13] MEDS: BUDESONIDE/FORMETEROL FUMARATE 80/4.5 mcg INHALER IH SCH (11:05)
[2024-04-13] MEDS ORDERED: guaiFENesin/CODEINE 5 ML UNIT-DOSE CUPS PO PRN (13:04)
[2024-04-13] MEDS: guaiFENesin/D-METHORPHAN HB 10 ML UNIT-DOSE CUPS PO PRN (16:35)
[2024-04-13] MEDS: IBUPROFEN 200 MG TABLET PO PRN (17:26)
[2024-04-13 21:28] VITALS: RESP 18
[2024-04-13] MEDS: ROSUVASTATIN CA 20 MG TABLET PO SCH (21:29)
[2024-04-14 00:21] LABS: EPI CELLS >36 /uL (0-25.1); HYALINE CASTS 26 /uL (0-3.1); PH,URINE 5.5 (5.0-8.0); URINE APPEARANCE CLOUDY; URINE BACTERIA 1174 /uL (0-1359); URINE BILIRUBIN NEGATIVE (NEGATIVE); URINE COLOR DK YELLOW; URINE GLUCOSE (UA) NEGATIVE (NEGATIVE); URINE KETONE TRACE (NEGATIVE); URINE LEUK ESTERASE 1+ (NEGATIVE); URINE NITRITE NEGATIVE (NEGATIVE); URINE PROTEIN 1+ (NEGATIVE); URINE WBC 379 /uL (0-25.8)
[2024-04-14 09:12] LABS: BASO % 0.4 % (0-2.0); EOS % 0.1 % (0-4.5); HEMATOCRIT 33.8 % (32.4-45.2); HEMOGLOBIN 11.3 GM/dL (10.7-15.3); LYMPH % 22.6 % (8-40); MCH 29.2 pg (25.7-33.7); MCHC 33.4 g/dl (32.0-36.0); MEAN CELL VOLUME 87.4 fl (80-96); MEAN PLT VOLUME 8.7 fl (7.5-11.1); MONO % 9.8 % (3.8-10.2); NEUT % 67.1 % (42.8-82.8); PLATELET COUNT 186 10^3/uL (134-434); RBC 3.87 M/mm3 (3.60-5.2); RDW 14.8 % (11.6-15.6); WHITE BLOOD COUNT 5.5 K/mm3 (4.0-10.0)
[2024-04-14 09:32] LABS: POTASSIUM 3.5 mmol/L (3.5-5.1)
[2024-04-14 09:35] LABS: CALCIUM 9.1 mg/dL (8.5-10.1)
[2024-04-14 09:36] LABS: ALBUMIN 2.9 g/dl (3.4-5.0); BLOOD UREA NITROGEN 11.3 mg/dL (7-18)
[2024-04-14 09:39] LABS: CREATININE 0.7 mg/dL (0.55-1.3)
[2024-04-14 09:40] LABS: BILIRUBIN,TOTAL 0.4 mg/dL (0.2-1)
[2024-04-14 09:41] LABS: TOT PROT 5.9 g/dl (6.4-8.2)
[2024-04-14] MEDS: ALBUTEROL SO4 0.083% IH SOL 2.5 MG/3 ML VIAL.NEB. NEB SCH (13:57)
[2024-04-14] MEDS ORDERED: ALBUTEROL SO4 HFA INHALER IH PRN (13:59)
[2024-04-14] MEDS ORDERED: ALBUTEROL SO4 0.083% IH SOL 2.5 MG/3 ML VIAL.NEB. NEB PRN (14:01)
[2024-04-14] MEDS: PANTOPRAZOLE 20 MG TABLET PO SCH (14:04)
[2024-04-14] MEDS: methylPREDNISolone NA SUCC 40 MG/1 ML VIAL IVPUSH SCH (14:04)
[2024-04-14] MEDS ORDERED: ALBUTEROL SO4 HFA INHALER IH SCH (16:00)
[2024-04-14] MEDS: ALBUTEROL SO4 2.5/IPRATROPIUM 0.5 INH SOL 3 ML VIAL.NEB. NEB SCH (16:48)
[2024-04-15 08:43] LABS: BASO % 0.2 % (0-2.0); HEMATOCRIT 37.2 % (32.4-45.2); HEMOGLOBIN 12.3 GM/dL (10.7-15.3); LYMPH % 33.2 % (8-40); MCH 29.1 pg (25.7-33.7); MCHC 33.2 g/dl (32.0-36.0); MEAN CELL VOLUME 87.8 fl (80-96); MEAN PLT VOLUME 9.2 fl (7.5-11.1); MONO % 4.4 % (3.8-10.2); NEUT % 62.2 % (42.8-82.8); PLATELET COUNT 207 10^3/uL (134-434); RBC 4.23 M/mm3 (3.60-5.2); RDW 15.1 % (11.6-15.6); WHITE BLOOD COUNT 6.3 K/mm3 (4.0-10.0)
[2024-04-15 08:56] LABS: POTASSIUM 4.1 mmol/L (3.5-5.1)
[2024-04-15 09:04] LABS: CREATININE 0.6 mg/dL (0.55-1.3)
[2024-04-15 09:06] LABS: BILIRUBIN,TOTAL 0.4 mg/dL (0.2-1); TOT PROT 6.3 g/dl (6.4-8.2)
[2024-04-15 09:07] LABS: BLOOD UREA NITROGEN 9.9 mg/dL (7-18)
[2024-04-15 09:08] LABS: CALCIUM 9.4 mg/dL (8.5-10.1)
[2024-04-15 14:18] VITALS: BP 142/70; PULSE 80; TEMP 98.1
== END 2024-04-15 16:19 | disposition home or self-care (01) | DRG 195 ==
LOC: JER 20:55 → JERBED 23:35 → J5S 04-13 06:38 → OBSVTOIN 04-14 13:24
PROVIDERS: ADMIT Internal Medicine
DX: J09.X2 Influenza due to identified novel influenza A virus with other respiratory manifestations (principal); E11.9 Type 2 diabetes mellitus without complications; I10 Essential (primary) hypertension; E78.5 Hyperlipidemia, unspecified; K21.9 Gastro-esophageal reflux disease without esophagitis; E87.5 Hyperkalemia; K76.0 Fatty (change of) liver, not elsewhere classified; R19.7 Diarrhea, unspecified; J40 Bronchitis, not specified as acute or chronic
CPT/HCPCS: 0241U-QW; 36415; 71045-TC-FY; 71260-TC; 74177-TC; 80048; 80053; 81003; 82962; 82977; 83605; 83735; 83993; 84100; 85025; 86704; 86708; 86803; 87045; 87046; 87086; 87340; 87517; 87899; 93005; 93010; 94640; 94761; 99285-25; G0378; J0131; Q9967